=== PATIENT | female | born 1955 | race Caucasian/White ===

== ENCOUNTER → 2018-01-26 | Outpatient (REF) | payer OTHER, MEDICAID ==
[2018-01-26 19:14] LABS: BASO % 0.3 % (0.0-1.0); EOS # 0.1 10^3/uL (0.0-0.50); EOS % 1.1 % (0.0-3.0); HEMATOCRIT 43.4 % (36.0-47.0); HEMOGLOBIN 14.4 g/dl (12.0-15.5); IMMATURE GRANULOCYTE % 0.2 % (0-3.0); LYMPH # 1.8 10^3/uL (1.5-4.5); LYMPH % 20.7 % (24.0-44.0); MEAN CORPUSCULAR HEMOGLOBIN 33.9 pg (27.0-33.0); MEAN CORPUSCULAR HGB CONC 33.2 g/dl (32.0-36.5); MEAN CORPUSCULAR VOLUME 102.1 fl (80.0-96.0); MONO # 0.6 10^3/uL (0.0-0.8); MONO % 7.3 % (0.0-5.0); NEUTROPHILS # 6.2 10^3/uL (1.8-7.7); NEUTROPHILS % 70.4 % (36.0-66.0); PLATELET COUNT, AUTOMATED 393 10^3/uL (150-450); RED BLOOD COUNT 4.25 10^6/uL (4.00-5.40); RED CELL DISTRIBUTION WIDTH 12.4 % (11.5-14.5); WHITE BLOOD COUNT 8.8 10^3/uL (4.0-10.0)
[2018-01-26 19:23] LABS: ALBUMIN 4.1 GM/DL (3.2-5.2); ALBUMIN/GLOBULIN RATIO 1.37 (1.00-1.93); ALKALINE PHOSPHATASE 79 U/L (45-117); ALT/SGPT 23 U/L (12-78); ANION GAP 7 MEQ/L (8-16); AST/SGOT 22 U/L (7-37); BILIRUBIN,TOTAL 0.4 MG/DL (0.2-1.0); BLOOD UREA NITROGEN 11 MG/DL (7-18); CALCIUM LEVEL 9.7 MG/DL (8.8-10.2); CARBON DIOXIDE LEVEL 26 MEQ/L (21-32); CHLORIDE LEVEL 107 MEQ/L (98-107); CHOLESTEROL LEVEL 206 MG/DL (<200); CHOLESTEROL RISK RATIO 5.024 (<5); CREATININE FOR GFR 0.79 MG/DL (0.55-1.30); GLOMERULAR FILTRATION RATE > 60.0 (>45); GLUCOSE, FASTING 96 MG/DL (70-100); HDL CHOLESTEROL 41 MG/DL (>40); LDL CHOLESTEROL 137 MG/DL (<100); NON-HDL-C 165 MG/DL; POTASSIUM SERUM 4.3 MEQ/L (3.5-5.1); SODIUM LEVEL 140 MEQ/L (136-145); THYROID STIMULATING HORMONE 0.669 uIU/ML (0.358-3.740); TOTAL PROTEIN 7.1 GM/DL (6.4-8.2); TRIGLYCERIDES LEVEL 140 MG/DL (<150)
[2018-01-26 19:24] LABS: TOTAL 25(OH) VITAMIN D 34.8 NG/ML (30.0-100.0)
[2018-01-26 19:25] LABS: FOLATE 3.7 NG/ML (>5.4); VITAMIN B12 LEVEL 875 PG/ML (247-911)
[2018-01-26 20:31] LABS: ESTIMATED AVERAGE GLUCOSE 117 MG/DL (60-110); HEMOGLOBIN A1c 5.7 %
== END ==
LOC: M LAB REF 18:49
DX: Z13.9 Encounter for screening, unspecified (principal)

== ENCOUNTER 2018-02-11 18:20 | Inpatient (IN) | payer OTHER, MEDICAID ==
[2018-02-11] MEDS: NS 1,000 ML IV ×2 (18:51→20:30)
[2018-02-11 19:04] LABS: VENOUS BASE EXCESS 3.7 (-2.0-2.0); VENOUS HCO3 30.6 MEQ/L (23.0-27.0); VENOUS O2 SATURATION 50.5 % (60.0-80.0); VENOUS PARTIAL PRESSURE CO2 59.3 mmHg (38.0-50.0); VENOUS PARTIAL PRESSURE O2 30.5 mmHg (30.0-50.0); VENOUS PH 7.331 UNITS (7.330-7.430); VENOUS STANDARD HCO3 26.9 MEQ/L; VENOUS TOTAL CO2 32.5 MEQ/L (24.0-28.0)
[2018-02-11 19:05] LABS: BASO % 0.2 % (0.0-1.0); EOS # 0.1 10^3/uL (0.0-0.50); EOS % 0.6 % (0.0-3.0); HEMATOCRIT 27.7 % (36.0-47.0); HEMOGLOBIN 9.1 g/dl (12.0-15.5); IMMATURE GRANULOCYTE % 0.8 % (0-3.0); LYMPH # 2.5 10^3/uL (1.5-4.5); LYMPH % 15.1 % (24.0-44.0); MEAN CORPUSCULAR HEMOGLOBIN 33.7 pg (27.0-33.0); MEAN CORPUSCULAR HGB CONC 32.9 g/dl (32.0-36.5); MEAN CORPUSCULAR VOLUME 102.6 fl (80.0-96.0); MONO # 0.9 10^3/uL (0.0-0.8); MONO % 5.3 % (0.0-5.0); NEUTROPHILS # 12.9 10^3/uL (1.8-7.7); PLATELET COUNT, AUTOMATED 372 10^3/uL (150-450); RED CELL DISTRIBUTION WIDTH 12.8 % (11.5-14.5); WHITE BLOOD COUNT 16.6 10^3/uL (4.0-10.0)
[2018-02-11 19:17] LABS: INR 1.17; PROTHROMBIN TIME 15.1 SECONDS (12.1-14.4)
[2018-02-11 19:18] LABS: PARTIAL THROMBOPLASTIN TIME 26.1 SECONDS (25.4-37.6)
[2018-02-11] MEDS: AZITHROMYCIN 250 MG TAB PO (19:30)
[2018-02-11] MEDS: cefTRIAXone SOD 1 GM in D5W MINI-BAG PLUS 50 ML IV (19:30)
[2018-02-11 19:34] LABS: LACTIC ACID SEPSIS PROTOCOL 1.8 MMOL/L (0.4-2.0)
[2018-02-11 19:34] LABS: ALBUMIN 3.1 GM/DL (3.2-5.2); ALBUMIN/GLOBULIN RATIO 1.19 (1.00-1.93); ALKALINE PHOSPHATASE 58 U/L (45-117); ALT/SGPT 17 U/L (12-78); AMYLASE 51 U/L (25-115); ANION GAP 10 MEQ/L (8-16); AST/SGOT 14 U/L (7-37); BILIRUBIN,DIRECT < 0.1 MG/DL (0.0-0.2); BILIRUBIN,TOTAL 0.2 MG/DL (0.2-1.0); BLOOD UREA NITROGEN 69 MG/DL (7-18); C REACTIVE PROTEIN QUANTITATIV 1.65 MG/DL (0.00-0.30); CALCIUM LEVEL 9.3 MG/DL (8.8-10.2); CARBON DIOXIDE LEVEL 28 MEQ/L (21-32); CHLORIDE LEVEL 105 MEQ/L (98-107); CPK CREATINE PHOSPHOKINASE 84 U/L (26-192); CREATININE FOR GFR 1.56 MG/DL (0.55-1.30); GLOMERULAR FILTRATION RATE 35.7 (>45); GLUCOSE, FASTING 103 MG/DL (70-100); MB/CK RELATIVE INDEX 1.55 (< OR =4); POTASSIUM SERUM 3.8 MEQ/L (3.5-5.1); SODIUM LEVEL 143 MEQ/L (136-145); TOTAL PROTEIN 5.7 GM/DL (6.4-8.2); TROPONIN I < 0.02 NG/ML (< 0.10)
[2018-02-11 19:43] LABS: INFLUENZA A AMPLIFICATION NEGATIVE (NEGATIVE); INFLUENZA B AMPLIFICATION NEGATIVE (NEGATIVE)
[2018-02-11 22:13] LABS: RETIC HEMOGLOBIN EQUIVALENT 37.1 pg (24-36); RETICULOCYTE # 57.6 10^9/L (17-77); RETICULOCYTE % 2.2 % (0.5-1.5)
[2018-02-11 22:20] LABS: APPEARANCE, URINE CLEAR (CLEAR); BACTERIA, URINE AUTO NEGATIVE (NEGATIVE); BILIRUBIN, URINE AUTO NEGATIVE (NEGATIVE); BLOOD, URINE BLOOD NEGATIVE (NEGATIVE); COLOR, URINE STRAW (YELLOW); GLUCOSE, URINE (UA) AUTO NEGATIVE (NEGATIVE); KETONE, URINE AUTO NEGATIVE (NEGATIVE); LEUKOCYTE ESTERASE, URINE AUTO NEGATIVE (NEGATIVE); MUCUS, URINE SMALL (NEGATIVE); NITRITE, URINE AUTO NEGATIVE (NEGATIVE); PROTEIN, URINE AUTO NEGATIVE (NEGATIVE); RBC, URINE AUTO 0 /HPF (0-3); SPECIFIC GRAVITY URINE AUTO 1.016 (1.002-1.035); SQUAMOUS EPITHELIAL CELL UR AU 0 /HPF (0-6); UROBILINOGEN, URINE AUTO 0.2 mg/dL (0.0-2.0); WBC, URINE AUTO 1 /HPF (0-3)
[2018-02-11] MEDS: ONDANSETRON 4MG/2ML VIAL (J2405) IV (22:25)
[2018-02-11 22:31] LABS: FERRITIN 58 NG/ML (8-252); IRON (FE) 42 UG/DL (50-170); TOTAL IRON BINDING CAPACITY 301 UG/DL (250-450)
[2018-02-11 23:38] LABS: CPK CREATINE PHOSPHOKINASE 93 U/L (26-192); TROPONIN I < 0.02 NG/ML (< 0.10)
[2018-02-12] MEDS: CEFEPIME HCL 2 GM in D5W 50 ML IV ×3 (00:40→16:19)
[2018-02-12] MEDS: HEPARIN SOD (PORCINE) 5000 UNITS/ML VIAL SQ ×3 (00:42→20:16)
[2018-02-12] MEDS: traZODone 50 MG TAB PO ×2 (00:42→20:16)
[2018-02-12 00:43] LABS: HEMATOCRIT 27.3 % (36.0-47.0)
[2018-02-12] MEDS: PANTOPRAZOLE 40MG INJ (PROTONIX) (C9113) IV ×3 (00:45→20:16)
[2018-02-12] MEDS: IPRATROPIUM 0.5MG/ALBUTEROL 2.5MG INH SOL UD 3ML (DUONEB)(J7620) NEB ×4 (02:00→20:18)
[2018-02-12 05:35] LABS: HEMATOCRIT 23.1 % (36.0-47.0); HEMOGLOBIN 7.4 g/dl (12.0-15.5); MEAN CORPUSCULAR VOLUME 103.1 fl (80.0-96.0); PLATELET COUNT, AUTOMATED 309 10^3/uL (150-450); RED BLOOD COUNT 2.24 10^6/uL (4.00-5.40); RED CELL DISTRIBUTION WIDTH 12.8 % (11.5-14.5); WHITE BLOOD COUNT 12.6 10^3/uL (4.0-10.0)
[2018-02-12 05:57] LABS: ANION GAP 5 MEQ/L (8-16); BLOOD UREA NITROGEN 50 MG/DL (7-18); C REACTIVE PROTEIN QUANTITATIV 1.31 MG/DL (0.00-0.30); CALCIUM LEVEL 8.7 MG/DL (8.8-10.2); CARBON DIOXIDE LEVEL 29 MEQ/L (21-32); CHLORIDE LEVEL 110 MEQ/L (98-107); GLOMERULAR FILTRATION RATE 59.6 (>45); GLUCOSE, FASTING 103 MG/DL (70-100); MAGNESIUM LEVEL 1.9 MG/DL (1.8-2.4); POTASSIUM SERUM 4.1 MEQ/L (3.5-5.1); SODIUM LEVEL 144 MEQ/L (136-145)
[2018-02-12] MEDS: NS 1,000 ML IV ×3 (06:11→16:19)
[2018-02-12] MEDS ORDERED: LISINOPRIL 20 MG TAB PO (09:00)
[2018-02-12] MEDS: CitaloPRAM (CeleXA) 20 MG TAB PO (09:45)
[2018-02-12] MEDS: SENOKOT S TAB PO ×2 (09:47→20:16)
[2018-02-12 11:00] LABS: IMMEDIATE SPIN CROSSMATCH 1 1
[2018-02-12 15:02] LABS: HEMATOCRIT 24.1 % (36.0-47.0); HEMOGLOBIN 7.8 g/dl (12.0-15.5)
[2018-02-12 19:00] LABS: HEMATOCRIT 23.5 % (36.0-47.0); HEMOGLOBIN 7.6 g/dl (12.0-15.5)
[2018-02-12] MEDS: AZITHROMYCIN INJ 500 MG, VIAL MATE ADAPTER 1 EACH in D5W 250 ML IV (20:16)
[2018-02-12] MEDS: ONDANSETRON 4MG/2ML VIAL (J2405) IV (20:39)
[2018-02-12 23:38] LABS: IMMEDIATE SPIN CROSSMATCH 1 1
[2018-02-13] MEDS: CEFEPIME HCL 2 GM in D5W 50 ML IV ×3 (01:41→15:20)
[2018-02-13] MEDS: IPRATROPIUM 0.5MG/ALBUTEROL 2.5MG INH SOL UD 3ML (DUONEB)(J7620) NEB ×4 (02:00→21:04)
[2018-02-13 02:50] LABS: HEMATOCRIT 26.8 % (36.0-47.0); HEMOGLOBIN 8.6 g/dl (12.0-15.5)
[2018-02-13] MEDS ORDERED: SLF 3 ML SYR IV (03:15)
[2018-02-13] MEDS: SLF 3 ML SYR IV ×3 (05:09→20:57)
[2018-02-13 06:25] LABS: HEMATOCRIT 28.2 % (36.0-47.0); HEMOGLOBIN 9.2 g/dl (12.0-15.5); MEAN CORPUSCULAR HEMOGLOBIN 31.9 pg (27.0-33.0); MEAN CORPUSCULAR HGB CONC 32.6 g/dl (32.0-36.5); MEAN CORPUSCULAR VOLUME 97.9 fl (80.0-96.0); PLATELET COUNT, AUTOMATED 310 10^3/uL (150-450); RED BLOOD COUNT 2.88 10^6/uL (4.00-5.40); RED CELL DISTRIBUTION WIDTH 16.6 % (11.5-14.5)
[2018-02-13 06:40] LABS: ANION GAP 6 MEQ/L (8-16); BLOOD UREA NITROGEN 18 MG/DL (7-18); C REACTIVE PROTEIN QUANTITATIV 0.72 MG/DL (0.00-0.30); CALCIUM LEVEL 8.8 MG/DL (8.8-10.2); CARBON DIOXIDE LEVEL 27 MEQ/L (21-32); CHLORIDE LEVEL 109 MEQ/L (98-107); CREATININE FOR GFR 0.82 MG/DL (0.55-1.30); GLOMERULAR FILTRATION RATE > 60.0 (>45); GLUCOSE, FASTING 97 MG/DL (70-100); MAGNESIUM LEVEL 1.9 MG/DL (1.8-2.4); POTASSIUM SERUM 3.7 MEQ/L (3.5-5.1); SODIUM LEVEL 142 MEQ/L (136-145)
[2018-02-13] MEDS: HEPARIN SOD (PORCINE) 5000 UNITS/ML VIAL SQ (08:14)
[2018-02-13] MEDS: CitaloPRAM (CeleXA) 20 MG TAB PO (08:14)
[2018-02-13] MEDS: PANTOPRAZOLE 40MG INJ (PROTONIX) (C9113) IV ×2 (08:14→20:57)
[2018-02-13] MEDS: SENOKOT S TAB PO ×2 (08:14→20:57)
[2018-02-13] MEDS: guaiFENesin SYRUP 200 MG/10 ML UDC PO ×3 (09:59→20:57)
[2018-02-13 14:05] LABS: HEMATOCRIT 29.1 % (36.0-47.0); HEMOGLOBIN 9.6 g/dl (12.0-15.5)
[2018-02-13] MEDS: AZITHROMYCIN INJ 500 MG, VIAL MATE ADAPTER 1 EACH in D5W 250 ML IV (20:00)
[2018-02-13] MEDS: traZODone 50 MG TAB PO (20:57)
[2018-02-14] MEDS: guaiFENesin SYRUP 200 MG/10 ML UDC PO ×3 (00:41→20:24)
[2018-02-14] MEDS: IPRATROPIUM 0.5MG/ALBUTEROL 2.5MG INH SOL UD 3ML (DUONEB)(J7620) NEB ×4 (01:55→20:12)
[2018-02-14 05:22] LABS: HEMATOCRIT 27.1 % (36.0-47.0); MEAN CORPUSCULAR HEMOGLOBIN 32.7 pg (27.0-33.0); MEAN CORPUSCULAR HGB CONC 33.2 g/dl (32.0-36.5); MEAN CORPUSCULAR VOLUME 98.5 fl (80.0-96.0); PLATELET COUNT, AUTOMATED 332 10^3/uL (150-450); RED BLOOD COUNT 2.75 10^6/uL (4.00-5.40); WHITE BLOOD COUNT 10.7 10^3/uL (4.0-10.0)
[2018-02-14 05:36] LABS: ANION GAP 5 MEQ/L (8-16); BLOOD UREA NITROGEN 11 MG/DL (7-18); C REACTIVE PROTEIN QUANTITATIV 0.48 MG/DL (0.00-0.30); CALCIUM LEVEL 8.9 MG/DL (8.8-10.2); CARBON DIOXIDE LEVEL 28 MEQ/L (21-32); CHLORIDE LEVEL 108 MEQ/L (98-107); CREATININE FOR GFR 0.73 MG/DL (0.55-1.30); GLOMERULAR FILTRATION RATE > 60.0 (>45); GLUCOSE, FASTING 96 MG/DL (70-100); MAGNESIUM LEVEL 1.8 MG/DL (1.8-2.4); POTASSIUM SERUM 3.7 MEQ/L (3.5-5.1); SODIUM LEVEL 141 MEQ/L (136-145)
[2018-02-14] MEDS: SLF 3 ML SYR IV ×3 (05:48→20:25)
[2018-02-14] MEDS: PANTOPRAZOLE 40MG INJ (PROTONIX) (C9113) IV ×2 (09:37→20:25)
[2018-02-14] MEDS: CEFEPIME HCL 2 GM in D5W 50 ML IV ×2 (09:37)
[2018-02-14] MEDS: SENOKOT S TAB PO ×2 (09:37→20:24)
[2018-02-14] MEDS: CitaloPRAM (CeleXA) 20 MG TAB PO (09:37)
[2018-02-14 11:59] LABS: FOLATE 3.4 NG/ML (>5.4); VITAMIN B12 LEVEL 717 PG/ML (247-911)
[2018-02-14] MEDS: AZITHROMYCIN 250 MG TAB PO (16:34)
[2018-02-14] MEDS: traZODone 50 MG TAB PO (20:24)
[2018-02-14] MEDS: CEFDINIR 300 MG CAP (OMNICEF) PO (20:25)
[2018-02-15] MEDS: ACETAMINOPHEN TAB 650MG DOSE (2X325MG) PO ×2 (00:20→14:32)
[2018-02-15] MEDS: IPRATROPIUM 0.5MG/ALBUTEROL 2.5MG INH SOL UD 3ML (DUONEB)(J7620) NEB ×5 (01:10→23:18)
[2018-02-15] MEDS: SLF 3 ML SYR IV ×3 (06:00→20:13)
[2018-02-15 06:01] LABS: HEMATOCRIT 27.1 % (36.0-47.0); HEMOGLOBIN 8.8 g/dl (12.0-15.5); MEAN CORPUSCULAR HGB CONC 32.5 g/dl (32.0-36.5); MEAN CORPUSCULAR VOLUME 98.5 fl (80.0-96.0); PLATELET COUNT, AUTOMATED 346 10^3/uL (150-450); RED BLOOD COUNT 2.75 10^6/uL (4.00-5.40); RED CELL DISTRIBUTION WIDTH 15.2 % (11.5-14.5); WHITE BLOOD COUNT 9.2 10^3/uL (4.0-10.0)
[2018-02-15 06:22] LABS: ANION GAP 6 MEQ/L (8-16); BLOOD UREA NITROGEN 9 MG/DL (7-18); C REACTIVE PROTEIN QUANTITATIV 0.91 MG/DL (0.00-0.30); CALCIUM LEVEL 8.6 MG/DL (8.8-10.2); CARBON DIOXIDE LEVEL 29 MEQ/L (21-32); CHLORIDE LEVEL 108 MEQ/L (98-107); CREATININE FOR GFR 0.69 MG/DL (0.55-1.30); GLOMERULAR FILTRATION RATE > 60.0 (>45); GLUCOSE, FASTING 99 MG/DL (70-100); MAGNESIUM LEVEL 1.8 MG/DL (1.8-2.4); POTASSIUM SERUM 3.6 MEQ/L (3.5-5.1); SODIUM LEVEL 143 MEQ/L (136-145)
[2018-02-15] MEDS: SENOKOT S TAB PO ×2 (08:23→20:13)
[2018-02-15] MEDS: CEFDINIR 300 MG CAP (OMNICEF) PO ×2 (08:23→20:13)
[2018-02-15] MEDS: AZITHROMYCIN 250 MG TAB PO (08:23)
[2018-02-15] MEDS: CitaloPRAM (CeleXA) 20 MG TAB PO (08:23)
[2018-02-15] MEDS: PANTOPRAZOLE 40MG INJ (PROTONIX) (C9113) IV ×2 (08:23→20:13)
[2018-02-15 13:54] LABS: HEMATOCRIT 28.2 % (36.0-47.0); HEMOGLOBIN 9.3 g/dl (12.0-15.5)
[2018-02-15] MEDS: guaiFENesin SYRUP 200 MG/10 ML UDC PO ×2 (14:32→18:39)
[2018-02-15] MEDS: traZODone 50 MG TAB PO (20:13)
[2018-02-16] MEDS: IPRATROPIUM 0.5MG/ALBUTEROL 2.5MG INH SOL UD 3ML (DUONEB)(J7620) NEB ×5 (02:00→20:32)
[2018-02-16] MEDS: SLF 3 ML SYR IV ×3 (04:46→20:53)
[2018-02-16 05:39] LABS: HEMATOCRIT 27.4 % (36.0-47.0); HEMOGLOBIN 9.1 g/dl (12.0-15.5); MEAN CORPUSCULAR HEMOGLOBIN 32.3 pg (27.0-33.0); MEAN CORPUSCULAR HGB CONC 33.2 g/dl (32.0-36.5); MEAN CORPUSCULAR VOLUME 97.2 fl (80.0-96.0); PLATELET COUNT, AUTOMATED 425 10^3/uL (150-450); RED BLOOD COUNT 2.82 10^6/uL (4.00-5.40); WHITE BLOOD COUNT 11.5 10^3/uL (4.0-10.0)
[2018-02-16 06:07] LABS: ANION GAP 7 MEQ/L (8-16); BLOOD UREA NITROGEN 9 MG/DL (7-18); C REACTIVE PROTEIN QUANTITATIV 2.03 MG/DL (0.00-0.30); CALCIUM LEVEL 8.9 MG/DL (8.8-10.2); CARBON DIOXIDE LEVEL 28 MEQ/L (21-32); CHLORIDE LEVEL 108 MEQ/L (98-107); CREATININE FOR GFR 0.77 MG/DL (0.55-1.30); GLOMERULAR FILTRATION RATE > 60.0 (>45); GLUCOSE, FASTING 109 MG/DL (70-100); MAGNESIUM LEVEL 1.8 MG/DL (1.8-2.4); POTASSIUM SERUM 3.3 MEQ/L (3.5-5.1); SODIUM LEVEL 143 MEQ/L (136-145)
[2018-02-16] MEDS: AZITHROMYCIN 250 MG TAB PO (09:10)
[2018-02-16] MEDS: guaiFENesin SYRUP 200 MG/10 ML UDC PO ×2 (09:10→14:52)
[2018-02-16] MEDS: PANTOPRAZOLE 40MG INJ (PROTONIX) (C9113) IV ×2 (09:10→20:53)
[2018-02-16] MEDS: CEFDINIR 300 MG CAP (OMNICEF) PO ×2 (09:11→20:53)
[2018-02-16] MEDS: POTASSIUM CHLORIDE 10 MEQ SR TABLET PO (09:11)
[2018-02-16] MEDS: SENOKOT S TAB PO ×2 (09:11→20:53)
[2018-02-16] MEDS: CitaloPRAM (CeleXA) 20 MG TAB PO (09:11)
[2018-02-16] MEDS: ACETAMINOPHEN TAB 650MG DOSE (2X325MG) PO ×2 (09:14→23:47)
[2018-02-16] MEDS: traZODone 50 MG TAB PO (20:53)
[2018-02-17] MEDS: IPRATROPIUM 0.5MG/ALBUTEROL 2.5MG INH SOL UD 3ML (DUONEB)(J7620) NEB ×2 (01:03→07:39)
[2018-02-17] MEDS: SLF 3 ML SYR IV ×2 (06:00→13:05)
[2018-02-17 07:39] LABS: HEMATOCRIT 28.9 % (36.0-47.0); HEMOGLOBIN 9.6 g/dl (12.0-15.5); MEAN CORPUSCULAR HEMOGLOBIN 32.9 pg (27.0-33.0); MEAN CORPUSCULAR HGB CONC 33.2 g/dl (32.0-36.5); PLATELET COUNT, AUTOMATED 437 10^3/uL (150-450); RED BLOOD COUNT 2.92 10^6/uL (4.00-5.40); RED CELL DISTRIBUTION WIDTH 15.2 % (11.5-14.5); WHITE BLOOD COUNT 10.6 10^3/uL (4.0-10.0)
[2018-02-17 08:02] LABS: ANION GAP 8 MEQ/L (8-16); BLOOD UREA NITROGEN 10 MG/DL (7-18); C REACTIVE PROTEIN QUANTITATIV 2.87 MG/DL (0.00-0.30); CALCIUM LEVEL 8.5 MG/DL (8.8-10.2); CARBON DIOXIDE LEVEL 27 MEQ/L (21-32); CHLORIDE LEVEL 109 MEQ/L (98-107); CREATININE FOR GFR 0.64 MG/DL (0.55-1.30); GLOMERULAR FILTRATION RATE > 60.0 (>45); GLUCOSE, FASTING 83 MG/DL (70-100); MAGNESIUM LEVEL 1.8 MG/DL (1.8-2.4); POTASSIUM SERUM 3.8 MEQ/L (3.5-5.1); SODIUM LEVEL 144 MEQ/L (136-145)
[2018-02-17] MEDS: AZITHROMYCIN 250 MG TAB PO (08:50)
[2018-02-17] MEDS: SENOKOT S TAB PO (08:50)
[2018-02-17] MEDS: CEFDINIR 300 MG CAP (OMNICEF) PO (08:50)
[2018-02-17] MEDS: PANTOPRAZOLE 40MG INJ (PROTONIX) (C9113) IV (08:50)
[2018-02-17] MEDS: CitaloPRAM (CeleXA) 20 MG TAB PO (08:50)
[2018-02-17] MEDS: ONDANSETRON 4MG/2ML VIAL (J2405) IV (09:24)
== END 2018-02-17 13:26 | disposition home or self-care (01) | DRG 723 ==
LOC: M ED 18:20 → M ED INP 20:21 → M PCU 23:51
PROC: 30233N1 Transfusion of Nonautologous Red Blood Cells into Peripheral Vein, Percutaneous Approach (ICD-10-PCS; principal; 2018-02-12)
DX: B34.8 Other viral infections of unspecified site (principal); N17.9 Acute kidney failure, unspecified; I10 Essential (primary) hypertension; F17.210 Nicotine dependence, cigarettes, uncomplicated; F32.9 Major depressive disorder, single episode, unspecified; G47.00 Insomnia, unspecified; D64.9 Anemia, unspecified; J45.909 Unspecified asthma, uncomplicated; R11.2 Nausea with vomiting, unspecified; R19.7 Diarrhea, unspecified; R42 Dizziness and giddiness; E86.0 Dehydration; J06.9 Acute upper respiratory infection, unspecified; Z79.899 Other long term (current) drug therapy; Z90.49 Acquired absence of other specified parts of digestive tract; Z96.641 Presence of right artificial hip joint

== ENCOUNTER → 2018-04-07 | Outpatient (REF) | payer OTHER ==
[~2018-04-07] MED LIST: AZIT-12 PO; CEFD300CAP PO; CITA40TA4 PO; FLON1SPR; LISI20TA PO; MUCI600T31 PO; PROAAER10 INH; TRAZ-163 PO; TRAZ150T90 PO; TYLE325C PO
[2018-04-07 18:20] LABS: BASO % 0.3 % (0.0-1.0); EOS # 0.1 10^3/uL (0.0-0.50); EOS % 1.6 % (0.0-3.0); HEMATOCRIT 38.3 % (36.0-47.0); HEMOGLOBIN 12.4 g/dl (12.0-15.5); LYMPH # 1.9 10^3/uL (1.5-4.5); LYMPH % 21.4 % (24.0-44.0); MEAN CORPUSCULAR HEMOGLOBIN 31.9 pg (27.0-33.0); MEAN CORPUSCULAR HGB CONC 32.4 g/dl (32.0-36.5); MEAN CORPUSCULAR VOLUME 98.5 fl (80.0-96.0); MONO # 0.8 10^3/uL (0.0-0.8); MONO % 9.1 % (0.0-5.0); NEUTROPHILS % 67.4 % (36.0-66.0); PLATELET COUNT, AUTOMATED 444 10^3/uL (150-450); RED BLOOD COUNT 3.89 10^6/uL (4.00-5.40); WHITE BLOOD COUNT 8.9 10^3/uL (4.0-10.0)
[2018-04-07 18:22] LABS: ALBUMIN 3.9 GM/DL (3.2-5.2); ALT/SGPT 19 U/L (12-78); BILIRUBIN,TOTAL 0.3 MG/DL (0.2-1.0); BLOOD UREA NITROGEN 12 MG/DL (7-18); CALCIUM LEVEL 9.8 MG/DL (8.8-10.2); CARBON DIOXIDE LEVEL 26 MEQ/L (21-32); CHLORIDE LEVEL 106 MEQ/L (98-107); CREATININE FOR GFR 0.76 MG/DL (0.55-1.30); GLOMERULAR FILTRATION RATE > 60.0 (>45); GLUCOSE, FASTING 76 MG/DL (70-100); POTASSIUM SERUM 4.2 MEQ/L (3.5-5.1); SODIUM LEVEL 138 MEQ/L (136-145); TOTAL PROTEIN 7.1 GM/DL (6.4-8.2)
== END ==
LOC: M LAB REF 16:30
PROVIDERS: ATTEND Nurse Practitioner Family
DX: D64.9 Anemia, unspecified (principal)

== ENCOUNTER 2018-04-20 07:56 | Day surgery (SDC) | payer OTHER ==
[~2018-04-20] VITALS: Ht 172.7 cm; Wt 92.1 kg
[~2018-04-20 07:56] MED LIST changes: +NS 1,000 ML IV ONE
[2018-04-20] MEDS ORDERED: PROPOFOL 200 MG/20 ML VIAL As Ordered ONE ×2 (09:32→10:02)
[2018-04-20] MEDS ORDERED: LIDOCAINE 2% INJ 100 MG/5 ML SDV (FOR ANES.) As Ordered ONE ×2 (09:32→10:02)
--- NOTE | 2018-04-20 10:00 | ROOR ---
Patient Name: Marsha Dixon Procedure Date: 04/20/2018 9:32 AM Date of : 1955 Age: 63 Room: [facility] Gender: Female Note Status: Finalized Procedure: Upper GI endoscopy Indications: Iron deficiency anemia Providers: DO Kimberly Real MD: Africa DURAN NP Requesting Provider: Medicines: Propofol per Anesthesia Complications: No immediate complications. Procedure: Pre-Anesthesia Assessment: - Prior to the procedure, a History and Physical was performed, and patient medications and allergies were reviewed. The patient is competent. The risks and benefits of the procedure and the sedation options and risks were discussed with the patient. All questions were answered and informed consent was obtained. Patient identification and proposed procedure were verified by the physician, the nurse, the anesthesiologist and the medtronics technician in the endoscopy suite. Mental Status Examination: alert and oriented. Airway Examination: normal oropharyngeal airway and neck mobility. Respiratory Examination: clear to auscultation. CV Examination: normal. Prophylactic Antibiotics: The patient does not require prophylactic antibiotics. Prior Anticoagulants: The patient has taken no previous anticoagulant or antiplatelet agents. ASA Grade Assessment: II - A patient with mild systemic disease. After reviewing the risks and benefits, the patient was deemed in satisfactory condition to undergo the procedure. The anesthesia plan was to use monitored anesthesia care (MAC). Immediately prior to administration of medications, the patient was re-assessed for adequacy to receive sedatives. The heart rate, respiratory rate, oxygen saturations, blood pressure, adequacy of pulmonary ventilation, and response to care were monitored throughout the procedure. The physical status of the patient was re-assessed after the procedure. The Endoscope was introduced through the mouth, and advanced to the second part of duodenum. The upper GI endoscopy was accomplished without difficulty. The patient tolerated the procedure well. Findings: The exam was otherwise without abnormality. Impression: - The examination was otherwise normal. - No specimens collected. Recommendation: - Patient has a contact number available for emergencies. The signs and symptoms of potential delayed complications were discussed with the patient. Return to normal activities tomorrow. Written discharge instructions were provided to the patient. - Return to my office PRN. William Griffin DO 04/20/2018 10:00:32 AM This report has been signed electronically. Number of Addenda: 0 Note Initiated On: 04/20/2018 9:32 AM Estimated Blood Loss: Estimated blood loss: none.
--- NOTE | 2018-04-20 10:03 | ROOR ---
Patient Name: Marsha Dixon Procedure Date: 04/20/2018 9:35 AM Date of : 1955 Age: 63 Room: [facility] Gender: Female Note Status: Finalized Procedure: Colonoscopy Indications: Iron deficiency anemia Providers: DO Kimberly Real MD: Africa DURAN NP Requesting Provider: Medicines: Propofol per Anesthesia Complications: No immediate complications. Procedure: Pre-Anesthesia Assessment: - Prior to the procedure, a History and Physical was performed, and patient medications and allergies were reviewed. The patient is competent. The risks and benefits of the procedure and the sedation options and risks were discussed with the patient. All questions were answered and informed consent was obtained. Patient identification and proposed procedure were verified by the physician, the nurse, the anesthesiologist and the fiscal technician in the endoscopy suite. Mental Status Examination: alert and oriented. Airway Examination: normal oropharyngeal airway and neck mobility. Respiratory Examination: clear to auscultation. CV Examination: normal. Prophylactic Antibiotics: The patient does not require prophylactic antibiotics. Prior Anticoagulants: The patient has taken no previous anticoagulant or antiplatelet agents. ASA Grade Assessment: II - A patient with mild systemic disease. After reviewing the risks and benefits, the patient was deemed in satisfactory condition to undergo the procedure. The anesthesia plan was to use monitored anesthesia care (MAC). Immediately prior to administration of medications, the patient was re-assessed for adequacy to receive sedatives. The heart rate, respiratory rate, oxygen saturations, blood pressure, adequacy of pulmonary ventilation, and response to care were monitored throughout the procedure. The physical status of the patient was re-assessed after the procedure. The Colonoscope was introduced through the anus and advanced to the cecum, identified by appendiceal orifice and ileocecal valve. The colonoscopy was performed without difficulty. The patient tolerated the procedure well. Findings: The perianal exam findings include non-thrombosed internal hemorrhoids and internal hemorrhoids (Grade I). A few small-mouthed diverticula were found in the sigmoid colon. The exam was otherwise without abnormality on direct and retroflexion views. Impression: - Non-thrombosed internal hemorrhoids and internal hemorrhoids (Grade I) found on perianal exam. - Diverticulosis in the sigmoid colon. - The examination was otherwise normal on direct and retroflexion views. - No specimens collected. Recommendation: - Patient has a contact number available for emergencies. The signs and symptoms of potential delayed complications were discussed with the patient. Return to normal activities tomorrow. Written discharge instructions were provided to the patient. - Repeat colonoscopy in 5-10 years for screening purposes. - Return to my office PRN. William Griffin DO 04/20/2018 10:02:41 AM This report has been signed electronically. Number of Addenda: 0 Note Initiated On: 04/20/2018 9:35 AM Estimated Blood Loss: Estimated blood loss: none.
[2018-04-20 10:25] VITALS: BP 127/64
== END 2018-04-20 10:42 | disposition home or self-care (01) ==
LOC: M OPP 07:56
PROVIDERS: ATTEND Surgery
DX: D50.9 Iron deficiency anemia, unspecified (principal); K64.0 First degree hemorrhoids; K57.30 Diverticulosis of large intestine without perforation or abscess without bleeding; I10 Essential (primary) hypertension; F17.210 Nicotine dependence, cigarettes, uncomplicated; Z79.899 Other long term (current) drug therapy; Z90.49 Acquired absence of other specified parts of digestive tract

== ENCOUNTER → 2018-07-28 | Outpatient (REF) | payer OTHER, MEDICAID ==
[~2018-07-28] MED LIST changes: -NS 1,000 ML IV ONE
[2018-07-28 17:12] LABS: BASO # 0.1 10^3/uL (0.0-0.2); BASO % 0.7 % (0.0-1.0); EOS # 0.4 10^3/uL (0.0-0.50); EOS % 4.5 % (0.0-3.0); HEMATOCRIT 40.5 % (36.0-47.0); LYMPH % 24.8 % (24.0-44.0); MEAN CORPUSCULAR HEMOGLOBIN 32.5 pg (27.0-33.0); MEAN CORPUSCULAR HGB CONC 32.1 g/dl (32.0-36.5); MEAN CORPUSCULAR VOLUME 101.3 fl (80.0-96.0); MONO # 0.8 10^3/uL (0.0-0.8); MONO % 9.7 % (0.0-5.0); NEUTROPHILS # 4.9 10^3/uL (1.8-7.7); NEUTROPHILS % 59.9 % (36.0-66.0); PLATELET COUNT, AUTOMATED 409 10^3/uL (150-450); WHITE BLOOD COUNT 8.2 10^3/uL (4.0-10.0)
[2018-07-28 17:23] LABS: ALBUMIN 3.9 GM/DL (3.2-5.2); ALT/SGPT 23 U/L (12-78); BILIRUBIN,TOTAL 0.3 MG/DL (0.2-1.0); BLOOD UREA NITROGEN 20 MG/DL (7-18); CALCIUM LEVEL 9.4 MG/DL (8.8-10.2); CARBON DIOXIDE LEVEL 26 MEQ/L (21-32); CHLORIDE LEVEL 106 MEQ/L (98-107); CHOLESTEROL LEVEL 216 MG/DL (<200); CHOLESTEROL RISK RATIO 5.142 (<5); CREATININE FOR GFR 0.95 MG/DL (0.55-1.30); FREE T4 1.06 NG/DL (0.76-1.46); GLOMERULAR FILTRATION RATE > 60.0 (>45); GLUCOSE, FASTING 118 MG/DL (70-100); HDL CHOLESTEROL 42 MG/DL (>40); LDL CHOLESTEROL 149 MG/DL (<100); NON-HDL-C 174 MG/DL; POTASSIUM SERUM 4.4 MEQ/L (3.5-5.1); SODIUM LEVEL 137 MEQ/L (136-145); THYROID STIMULATING HORMONE 0.653 uIU/ML (0.358-3.740); TOTAL PROTEIN 6.8 GM/DL (6.4-8.2); TRIGLYCERIDES LEVEL 124 MG/DL (<150)
[2018-07-28 17:58] LABS: TOTAL T3 102.3 NG/DL (60.0-181.0)
[2018-07-28 19:16] LABS: HEMOGLOBIN A1c 6.1 %
== END ==
LOC: M LAB REF 16:48
PROVIDERS: ATTEND Nurse Practitioner Family
DX: Z13.9 Encounter for screening, unspecified (principal); I10 Essential (primary) hypertension

== ENCOUNTER → 2018-12-20 | Outpatient (CLI) | payer OTHER ==
[~2018-12-20] MED LIST changes: -LISI20TA PO; +LISI20TA19 PO
--- NOTE | 2018-12-20 11:01 | REPMRS ---
Patient History Patient is postmenopausal and had first child at age 35. Family history of breast cancer at age 89 in mother, breast cancer at age 54 in sister, unknown cancer at age 78 in father. Priors no longer available-10 years ago 3D TOMOSYNTHESIS WAS PERFORMED. [facility] lifetime risk for breast cancer is 15.2%. Digital Mammo Screening Bilat: December 20, 2018 - Exam #: [id number] Bilateral CC and MLO view(s) were taken. Technologist: Marcela Ramey, Technologist No prior studies available for comparison. FINDINGS: There are scattered fibroglandular densities. There is no evidence of cancer on this mammogram. Assessment: BI-RADS/ACR category 2 mammogram. Benign Findings. Recommendation Routine screening mammogram of both breasts in 1 year (for women over age 40). This mammogram was interpreted with the aid of an FDA-approved computer-aided dectection system. Electronically Signed By: William English MD 12/20/18 [id number]
== END ==
LOC: M RAD 10:03
PROVIDERS: ATTEND Nurse Practitioner Family
DX: Z12.31 Encounter for screening mammogram for malignant neoplasm of breast (principal); Z80.3 Family history of malignant neoplasm of breast

== ENCOUNTER → 2018-12-26 | Outpatient (REF) | payer OTHER ==
[2018-12-26 16:40] LABS: ALBUMIN 3.5 GM/DL (3.2-5.2); BILIRUBIN,TOTAL 0.4 MG/DL (0.2-1.0); CALCIUM LEVEL 9.8 MG/DL (8.8-10.2); CHOLESTEROL RISK RATIO 4.63 (<5); CREATININE FOR GFR 1.14 MG/DL (0.55-1.30); GLOMERULAR FILTRATION RATE 51.2 (>45); TOTAL PROTEIN 6.7 GM/DL (6.4-8.2)
[2018-12-26 16:50] LABS: HEMOGLOBIN A1c 6.1 %
== END ==
LOC: M LAB REF 16:05
PROVIDERS: ATTEND Nurse Practitioner Family
DX: E78.5 Hyperlipidemia, unspecified (principal); R73.03 Prediabetes

== ENCOUNTER → 2018-12-27 | Outpatient (CLI) | payer OTHER ==
--- NOTE | 2018-12-27 15:43 | REP ---
Two-view chest: 12/27/2018. Indication: Dyspnea. Comparison: 02/11/2019. Findings: The lungs are clear. There is no significant pleural fluid or pneumothorax. The cardiac silhouette is at the upper limits of normal. Lungs are mildly hyperinflated. Spondylitic changes of the thoracic spine are noted without compression deformity. Impression: No acute cardiopulmonary process. Electronically Signed by Tyler Coronel DO 12/27/2018 03:35 P
== END ==
LOC: M RAD 13:12
PROVIDERS: ATTEND Physician Assistant Medical
DX: R05 Cough (principal); R06.02 Shortness of breath

== ENCOUNTER → 2019-08-14 | Outpatient (REF) | payer OTHER ==
[~2019-08-14] MED LIST changes: -TRAZ-163 PO; +TRAZ-257 PO
[2019-08-14 11:59] LABS: BASO # 0.1 10^3/uL (0.0-0.2); BASO % 0.6 % (0.0-1.0); EOS # 0.3 10^3/uL (0.0-0.5); EOS % 3.4 % (0.0-3.0); HEMOGLOBIN 13.8 g/dl (12.0-15.5); LYMPH # 2.6 10^3/uL (1.5-5.0); LYMPH % 30.8 % (24.0-44.0); MEAN CORPUSCULAR HEMOGLOBIN 33.6 pg (27.0-33.0); MEAN CORPUSCULAR HGB CONC 32.9 g/dl (32.0-36.5); MEAN CORPUSCULAR VOLUME 102.2 fl (80.0-96.0); MONO # 0.7 10^3/uL (0.0-0.8); NEUTROPHILS # 4.9 10^3/uL (1.5-8.5); NEUTROPHILS % 56.9 % (36.0-66.0); PLATELET COUNT, AUTOMATED 397 10^3/uL (150-450); RED BLOOD COUNT 4.11 10^6/uL (4.00-5.40); WHITE BLOOD COUNT 8.6 10^3/uL (4.0-10.0)
[2019-08-14 12:53] LABS: ALBUMIN 3.7 GM/DL (3.2-5.2); BILIRUBIN,TOTAL 0.5 MG/DL (0.2-1.0); CALCIUM LEVEL 9.6 MG/DL (8.8-10.2); CHOLESTEROL RISK RATIO 5.743 (<5); CREATININE FOR GFR 1.13 MG/DL (0.55-1.30); GLOMERULAR FILTRATION RATE 51.6 (>45); POTASSIUM SERUM 4.3 MEQ/L (3.5-5.1)
[2019-08-14 14:18] LABS: HEMOGLOBIN A1c 6.1 %
== END ==
LOC: M LAB REF 11:33
PROVIDERS: ATTEND Nurse Practitioner Family
DX: I10 Essential (primary) hypertension (principal); E78.5 Hyperlipidemia, unspecified; R73.03 Prediabetes

== ENCOUNTER 2019-11-02 05:40 | Inpatient (IN) | payer OTHER ==
[~2019-11-02] VITALS: Ht 167.6 cm; Wt 92.0 kg
[~2019-11-02 05:40] MED LIST changes: -LISI20TA19 PO; +LISI20TA35 PO
[2019-11-02] MEDS ORDERED: ONDANSETRON 4MG/2ML VIAL As Ordered ONE (05:54)
[2019-11-02] MEDS ORDERED: PROAAER10 INH (06:09)
[2019-11-02] MEDS ORDERED: SYMB16INH INH (06:09)
[2019-11-02] MEDS ORDERED: ONDANSETRON 4MG/2ML VIAL IV ONE (06:15)
[2019-11-02] MEDS ORDERED: KETOROLAC 30 MG/ML 1ML VIAL IV ONE (06:30)
[2019-11-02] MEDS ORDERED: NS 1,000 ML IV ONE (06:30)
[2019-11-02] MEDS ORDERED: ISOVUE-370 76% 100ML VIAL As Ordered ONE (06:31)
[2019-11-02 06:49] LABS: BASO % 0.3 % (0.0-1.0); EOS % 0.3 % (0.0-3.0); HEMATOCRIT 44.4 % (36.0-47.0); HEMOGLOBIN 14.9 g/dl (12.0-15.5); LYMPH % 6.6 % (24.0-44.0); MEAN CORPUSCULAR HEMOGLOBIN 34.2 pg (27.0-33.0); MEAN CORPUSCULAR HGB CONC 33.6 g/dl (32.0-36.5); MEAN CORPUSCULAR VOLUME 101.8 fl (80.0-96.0); MONO # 0.5 10^3/uL (0.0-0.8); MONO % 3.3 % (0.0-5.0); NEUTROPHILS % 89.2 % (36.0-66.0); PLATELET COUNT, AUTOMATED 471 10^3/uL (150-450); RED BLOOD COUNT 4.36 10^6/uL (4.00-5.40); WHITE BLOOD COUNT 15.7 10^3/uL (4.0-10.0)
[2019-11-02 06:59] LABS: ALBUMIN 4.3 GM/DL (3.2-5.2); BILIRUBIN,DIRECT 0.2 MG/DL (0.0-0.2); BILIRUBIN,TOTAL 0.6 MG/DL (0.2-1.0); CALCIUM LEVEL 10.1 MG/DL (8.8-10.2); CREATININE FOR GFR 1.03 MG/DL (0.55-1.30); GLOMERULAR FILTRATION RATE 57.4 (>45); POTASSIUM SERUM 4.8 MEQ/L (3.5-5.1); TOTAL PROTEIN 7.9 GM/DL (6.4-8.2)
--- NOTE | 2019-11-02 07:45 | REPVR ---
PROCEDURE INFORMATION: Exam: CT Abdomen And Pelvis With Contrast Exam date and time: 11/02/2019 6:19 AM Age: 64 years old Clinical indication: Abdominal pain; Localized; Right lower quadrant (rlq); Additional info: Rlq pain, severe n/v/d TECHNIQUE: Imaging protocol: Computed tomography of the abdomen and pelvis with intravenous contrast. Radiation optimization: All CT scans at this facility use at least one of these dose optimization techniques: automated exposure control; mA and/or kV adjustment per patient size (includes targeted exams where dose is matched to clinical indication); or iterative reconstruction. Contrast material: ISO; Contrast volume: 100 ml; Contrast route: INTRAVENOUS (IV); COMPARISON: CT ABD PELVIS W/O CONTRAST 02/11/2018 10:41 PM FINDINGS: Lungs: Atelectasis in the lingula and right middle lobe. Liver: Hepatomegaly. Gallbladder and bile ducts: Normal. No calcified stones. No ductal dilation. Pancreas: Normal. No ductal dilation. Spleen: Normal. No splenomegaly. Adrenals: Stable right adrenal nodule previously shown be an adenoma. Stable left adrenal hyperplasia. Kidneys and ureters: Mild bilateral renal cortical scarring. Stomach and bowel: Small bowel obstruction with transition point in the ventral abdominal hernia best appreciated on axial image number 126. Diverticulosis of colon. No evidence of acute diverticulitis. Appendix: No evidence of appendicitis. Intraperitoneal space: Trace ascites. Vasculature: Atherosclerotic disease of the abdominal aorta. Lymph nodes: Maldonado hepatis and foramen Dave adenopathy. Bladder: Unremarkable as visualized. Reproductive: Stable heterogeneous soft tissue fullness inseparable from the uterus and left adnexa. Bones/joints: Multilevel degenerative disease and facet hypertrophy of the lumbar spine. Stenosis of the spinal canal and neural foramina at multiple levels. Soft tissues: Unremarkable. IMPRESSION: Small bowel obstruction with transition point in the ventral abdominal hernia best appreciated on axial image number 126. Electronically signed by: Ham Lai On 11/02/2019 07:45:38 AM
[2019-11-02] MEDS ORDERED: MORPHINE 4 MG/ML 1ML VIAL/SYRINGE (J2270) IV ONE (08:00)
[2019-11-02] MEDS ORDERED: LISI10TA15 PO (09:22)
[2019-11-02] MEDS ORDERED: ACET1TAB55 PO (09:22)
[2019-11-02] MEDS ORDERED: NICO1DIS11 TD (09:25)
[2019-11-02] MEDS ORDERED: MORPHINE 2 MG/ML 1ML VIAL (J2270) IV ONE (09:30)
[2019-11-02] MEDS ORDERED: ALBUTEROL 90 MCG/ACT 8GM HFA INHALER INH PRN (11:45)
--- NOTE | 2019-11-02 12:42 | HPEPDOC ---
[facility] Medical History & Physical Date of Admission Nov 02, 2019 Date of Service: Nov 02, 2019 Attending Physician: JAZMIN THOMPSON MD History and Physical CHIEF COMPLAINT: severe lower abdominal pain HISTORY OF PRESENT ILLNESS: 64 yo F with a hx of HTN, anxiety, depression, COPD, complicated diverticulitis with colectomy, colostomy (reversed), L inguinal hernia repair (open) and R hip arthroplasty. progressively worsening lower abdominal pain starting at 7pm yesterday evening, associated with nausea and bilious non bloody vomiting. Patient further endorses subjective fevers, chills, malaise and lack of appetite. She denies blood per rectum. On arrival to ED, CT abdomen showing SBO. NGT placed to LIS, draining large amount of gastric contents. Marked improvement in pain, nausea. General Sx consulted, Dr. Jung. Trial conservative management for SBO, likely 2/2 adhesions. LA wnl. WBC wnl. PAST MEDICAL HISTORY: 1. HTN 2. Anxiety and depression 3. COPD 4. Diverticulitis PAST SURGICAL HISTORY: 1. Complicated diverticulitis, colectomy, colostomy with reversal 2. L inguinal hernia repair (open) 3. R hip arthroplasty SOCIAL HISTORY: Smoker, 20 pack year hx Rare etoh use Denies illicit drug use FAMILY HISTORY: non contributory ALLERGIES: NKDA REVIEW OF SYSTEMS: CONSTITUTIONAL: malaise HEENT: none. CARDIOVASCULAR: none. RESPIRATORY: none. GASTROINTESTINAL: 3/10 abdo pain (8/10 on arrival), nausea, vomiting. GENITOURINARY: none SKIN: none MUSCULOSKELETAL: none. NEUROLOGICAL: none. PSYCHIATRIC: none. ENDOCRINE: none. HEMATOLOGIC/LYMPHATIC: none. HOME MEDICATIONS: Please see below. PHYSICAL EXAMINATION: VITAL SIGNS: see below GENERAL APPEARANCE: malaise, discomfort. HEENT: PERRLA CARDIOVASCULAR: RRR, NORMAL S1,S2. LUNGS: CTAB. ABDOMEN: MILDLY DISTENDED, BS HYPERACTIVE, NGT DRAINING MUSCULOSKELETAL: no deformity, normal ROM . EXTREMITIES: no edema, normal ROM . NEUROLOGICAL: no focal neuro deficits. PSYCHIATRIC: calm, cooperative. LABORATORY DATA: See below. IMAGING: CT abo pelvis wo contrast - small bowel obstruction, with transition point in the ventral abdominal hernia MICROBIOLOGY: Please see below. ASSESSMENT: 64 yo F with a hx of HTN, anxiety, depression, COPD, complicated diverticulitis with colectomy, colostomy (reversed), L inguinal hernia repair (open) and R hip arthroplasty. Admitted for SBO likely 2/2 abdominal adhesions. Trial conservative therapy. Surgery on consult, Dr. Jung. . PLAN: 1. SBO: 2/2 abdominal adhesions. Gen Sx on consult. Discussed with Dr. Jung, does not believe ventral hernia to be culprit for SBO, likely adhesions. NGT. NPO. Pain control morphine 2 mg q6h prn IV. Zofran IV prn. IVF D5NS 125 cc/hr. Daily abdo plain filmd. 2. HTN: home meds when tolerating PO. Lisinopril-HCTZ 10-12.5. elevated bp on admision likely 2/2 pain. monitor. IV prn if needed depenign on floor paramaters. 3. Anxiety and depression. home med when PO. Citalopram 40 mg daily. 4. COPD: albuterol. symbicort. 5. Macrocytosis: check b12, folate 6. pre-DM: A1c 6.0. Fasting BG 164, possibly due to stress reaction. PCP follow up. . DVT PPX: lovenox 40 mg sc daily. Dispo: home once medically clear. Vital Signs Vital Signs Date Time Temp Pulse Resp B/P (MAP) Pulse Ox O2 Delivery O2 Flow Rate FiO2 11/02/19 10:08 20 150/70 91 Room Air 11/02/19 07:49 95 11/02/19 05:44 98.7 Laboratory Data Labs 24H Laboratory Tests 2 11/02/19 05:40: Estimated Mean Plasma Glucose 126H, Hemoglobin A1c 6.0 11/02/19 05:57: Immature Granulocyte % (Auto) 0.3, Neutrophils (%) (Auto) 89.2H, Lymphocytes (%) (Auto) 6.6L, Monocytes (%) (Auto) 3.3, Eosinophils (%) (Auto) 0.3, Basophils (%) (Auto) 0.3, Neutrophils # (Auto) 14.0H, Lymphocytes # (Auto) 1.0L, Monocytes # (Auto) 0.5, Eosinophils # (Auto) 0.0, Basophils # (Auto) 0.0, Nucleated Red Blood Cells % (auto) 0.0, Anion Gap 4L, Glomerular Filtration Rate 57.4, Calcium Level 10.1, Total Bilirubin 0.6, Direct Bilirubin 0.2, Aspartate Amino Transf (AST/SGOT) 37, Alanine Aminotransferase (ALT/SGPT) 39, Alkaline Phosphatase 105, Total Protein 7.9, Albumin 4.3, Albumin/Globulin Ratio 1.2, Lipase 144 11/02/19 06:36: Lactic Acid Level 1.5 CBC/BMP Laboratory Tests 11/02/19 05:57 Home Medications Scheduled Budesonide/Formoterol (Symbicort 160-4.5 Mcg Inhaler) 6 Gm Hfa.aer.ad, 1 PUFF INH QHS Citalopram Hydrobromide (Citalopram HBr) 40 Mg Tab, 40 MG PO DAILY Fluticasone Propionate (Flonase Allergy Relief) 50 Mcg/Act Spr, 2 SPRAYS NA DAILY Lisinopril/Hydrochlorothiazide (Lisinopril-Hctz 10-12.5 mg Tab) 1 Each Tablet, 1 TAB PO DAILY Trazodone HCl (Trazodone HCl) 100 Mg Tab, 200 MG PO QHS Scheduled PRN Albuterol Sulfate (Proair Hfa) 8.5 Gm Hfa.aer.ad, 2 PUFF INH for SHORTNESS OF BREATH Guaifenesin (Mucinex) 600 Mg Tab, 600 MG PO BID PRN for CONGESTION Nicotine (Nicotine Patch) 21 Mg/24 Hr Patch.td24, 21 MG TD DAILY PRN for NICOTINE WITHDRAWAL Allergies Coded Allergies: No Known Allergies (Unverified , 03/25/18) A-FIB/CHADSVASC A-FIB History Current/History of A-Fib/PAF?: No Current PO Anticoag Therapy: No JAZMIN THOMPSON MD Nov 02, 2019 12:42
[2019-11-02] MEDS ORDERED: NICOTINE 7 MG/24 HR TRANSDERMAL TD ONE (13:00)
[2019-11-02] MEDS: ONDANSETRON 4MG/2ML VIAL IV PRN ×2 (16:06→22:14)
[2019-11-02] MEDS: MORPHINE 2 MG/ML 1ML VIAL (J2270) IV PRN ×2 (16:07→22:15)
[2019-11-02] MEDS: D5W/0.9% SODIUM CHLORIDE 1,000 ML IV SCH ×2 (16:08→23:30)
[2019-11-02] MEDS: SYMBICORT 160/4.5MCG INHALER 6GM INH SCH (18:19)
[2019-11-02 22:00] VITALS: BP 116/92
[2019-11-03] MEDS: CEPACOL LOZENGE PO PRN (05:15)
[2019-11-03] MEDS: MORPHINE 2 MG/ML 1ML VIAL (J2270) IV PRN ×3 (05:15→19:58)
[2019-11-03] MEDS: ONDANSETRON 4MG/2ML VIAL IV PRN ×3 (05:15→19:57)
[2019-11-03 06:00] VITALS: BP 114/82
--- NOTE | 2019-11-03 06:51 | IPNPDOC ---
Date Seen The patient was seen on 11/03/19. Progress Note SUBJECTIVE: much improved this morning. Abdo pain improved. Passing gas. NO BM. Denies fevers, chills, n/v/d. OBJECTIVE PHYSICAL EXAMINATION: GENERAL APPEARANCE: malaise, discomfort. HEENT: PERRLA CARDIOVASCULAR: RRR, NORMAL S1,S2. LUNGS: CTAB. ABDOMEN: MILDLY DISTENDED, BS HYPERACTIVE, NGT clamped. MUSCULOSKELETAL: no deformity, normal ROM . EXTREMITIES: no edema, normal ROM . NEUROLOGICAL: no focal neuro deficits. PSYCHIATRIC: calm, cooperative. LABORATORY DATA, IMAGING STUDIES, MICROBIOLOGY: Please see below. DVT prophylaxis ordered?: Y ASSESSMENT AND PLAN: 64 yo F with a hx of HTN, anxiety, depression, COPD, complicated diverticulitis with colectomy, colostomy (reversed), L inguinal hernia repair (open) and R hip arthroplasty. Admitted for SBO likely 2/2 abdominal adhesions. Trial conservative therapy. Surgery on consult, Dr. Jung. PROBLEMS: 1. SBO: 2/2 abdominal adhesions. Gen Sx on consult. Discussed with Dr. Jung NGT clamped. Avance to clears if low residuals. Pain control morphine 2 mg q6h prn IV. Zofran IV prn. IVF D5NS 125 cc/hr. Daily abdo plain film. 2. HTN: home meds when tolerating PO. Lisinopril-HCTZ 10-12.5. elevated bp on a dmision likely 2/2 pain. monitor. IV prn if needed depending on floor paramaters. Normotensive today. 3. Anxiety and depression. home med when PO. Citalopram 40 mg daily. 4. COPD: albuterol. symbicort. 5. Macrocytosis: check b12, folate 6. pre-DM: A1c 6.0. Fasting BG 164, possibly due to stress reaction. PCP follow up. DVT PPX: lovenox 40 mg sc daily. Dispo: home once medically clear. VS, I&O, 24H, Fishbone Vital Signs/I&O Vital Signs Date Time Temp Pulse Resp B/P (MAP) Pulse Ox O2 Delivery O2 Flow Rate FiO2 11/03/19 06:00 97.7 64 20 114/82 (93) 91 Room Air I&O- Last 24 Hours up to 6 AM 11/03/19 06:00 Intake Total 2000 ml Output Total 0 ml Balance 2000 ml JAZMIN THOMPSON MD Nov 03, 2019 06:51
[2019-11-03] MEDS: D5W/0.9% SODIUM CHLORIDE 1,000 ML IV SCH (06:57)
[2019-11-03 08:02] LABS: BASO % 0.3 % (0.0-1.0); EOS # 0.4 10^3/uL (0.0-0.5); EOS % 4.2 % (0.0-3.0); HEMATOCRIT 38.9 % (36.0-47.0); LYMPH # 2.5 10^3/uL (1.5-5.0); LYMPH % 24.2 % (24.0-44.0); MEAN CORPUSCULAR HEMOGLOBIN 33.6 pg (27.0-33.0); MEAN CORPUSCULAR HGB CONC 32.4 g/dl (32.0-36.5); MEAN CORPUSCULAR VOLUME 103.7 fl (80.0-96.0); MONO % 9.1 % (0.0-5.0); NEUTROPHILS # 6.5 10^3/uL (1.5-8.5); NEUTROPHILS % 61.9 % (36.0-66.0); PLATELET COUNT, AUTOMATED 373 10^3/uL (150-450); RED BLOOD COUNT 3.75 10^6/uL (4.00-5.40); WHITE BLOOD COUNT 10.4 10^3/uL (4.0-10.0)
[2019-11-03] MEDS: SYMBICORT 160/4.5MCG INHALER 6GM INH SCH ×2 (08:03→18:26)
[2019-11-03 08:08] LABS: HEMOGLOBIN 12.6 g/dl (12.0-15.5)
[2019-11-03 08:22] LABS: ALBUMIN 3.1 GM/DL (3.2-5.2); ALT/SGPT 28 U/L (12-78); BILIRUBIN,TOTAL 0.4 MG/DL (0.2-1.0); BLOOD UREA NITROGEN 10 MG/DL (7-18); CALCIUM LEVEL 8.6 MG/DL (8.8-10.2); CARBON DIOXIDE LEVEL 34 MEQ/L (21-32); CHLORIDE LEVEL 107 MEQ/L (98-107); CREATININE FOR GFR 0.89 MG/DL (0.55-1.30); GLOMERULAR FILTRATION RATE > 60.0 (>45); GLUCOSE, FASTING 119 MG/DL (70-100); SODIUM LEVEL 141 MEQ/L (136-145); TOTAL PROTEIN 5.9 GM/DL (6.4-8.2)
[2019-11-03] MEDS ORDERED: CitaloPRAM (CeleXA) 20 MG TAB PO SCH (09:00)
[2019-11-03] MEDS ORDERED: hydroCHLOROthiazide 12.5 MG CAPSULE PO SCH (09:00)
[2019-11-03] MEDS ORDERED: lisinopriL 10 MG TAB PO SCH (09:00)
[2019-11-03] MEDS: ENOXAPARIN 40MG/0.4ML SYRINGE (J1650 PER 10MG) SC SCH (09:56)
[2019-11-03 14:00] VITALS: BP 125/77
[2019-11-03 22:00] VITALS: BP 147/77
[2019-11-04] MEDS: ONDANSETRON 4MG/2ML VIAL IV PRN ×2 (02:27→08:38)
[2019-11-04] MEDS: MORPHINE 2 MG/ML 1ML VIAL (J2270) IV PRN ×2 (02:28→08:38)
[2019-11-04 06:00] VITALS: BP 157/74
[2019-11-04] MEDS: SYMBICORT 160/4.5MCG INHALER 6GM INH SCH ×2 (06:10→18:00)
[2019-11-04] MEDS: ENOXAPARIN 40MG/0.4ML SYRINGE (J1650 PER 10MG) SC SCH (08:38)
--- NOTE | 2019-11-04 10:09 | REPVR ---
PROCEDURE INFORMATION: Exam: XR Abdomen, 1 View Exam date and time: 11/04/2019 6:00 AM Age: 64 years old Clinical indication: Condition or disease; Other: Obstruction; Additional info: Small bowel obstruction TECHNIQUE: Imaging protocol: XR of the abdomen. Views: Frontal supine view of the abdomen. 1 View. COMPARISON: 1. UT - Abdomen,Flat Plate KUB 11/03/2019 8:36:35 AM 2. CR - Abdomen,Flat Upright,PA CHEST 11/02/2019 7:23 AM FINDINGS: Tubes, catheters and devices: A transesophageal enteric tube courses over the mediastinum its tip overlies the abdominal left upper quadrant at the expected location of the stomach. The enteric tube side port lies at the region of the gastroesophageal junction. Gastrointestinal tract: Gas is present within the stomach, small bowel, colon, and rectum. Nonobstructive bowel gas pattern. The dilated gas-filled small bowel present on 11/02/2019 has improved. Organs: No organomegaly is identified. Bones/joints: Multilevel degenerative spine disease. Right total hip arthroplasty hardware, incompletely imaged. Mild left hip osteoarthritis. Soft tissues: Pelvic surgical clips. IMPRESSION: 1. Support apparatus as described. 2. Nonobstructive bowel gas pattern. The dilated gas-filled small bowel present on 11/02/2019 has improved. Electronically signed by: Tashi Holloway On 11/04/2019 10:09:23 AM
--- NOTE | 2019-11-04 13:57 | IPNPDOC ---
Date Seen The patient was seen on 11/04/19. Progress Note SUBJECTIVE: much improved this morning. Abdo pain improved. Passing gas. NO BM. Denies fevers, chills, n/v/d. OBJECTIVE PHYSICAL EXAMINATION: GENERAL APPEARANCE: malaise, discomfort. HEENT: PERRLA CARDIOVASCULAR: RRR, NORMAL S1,S2. LUNGS: CTAB. ABDOMEN: MILDLY DISTENDED, BS HYPERACTIVE, NGT draining. MUSCULOSKELETAL: no deformity, normal ROM . EXTREMITIES: no edema, normal ROM . NEUROLOGICAL: no focal neuro deficits. PSYCHIATRIC: calm, cooperative. LABORATORY DATA, IMAGING STUDIES, MICROBIOLOGY: Please see below. PLAIN FILM ABDOMEN: IMPRESSION: 1. Support apparatus as described. 2. Nonobstructive bowel gas pattern. The dilated gas-filled small bowel present on 11/02/2019 has improved. DVT prophylaxis ordered?: Y ASSESSMENT AND PLAN: 64 yo F with a hx of HTN, anxiety, depression, COPD, complicated diverticulitis with colectomy, colostomy (reversed), L inguinal hernia repair (open) and R hip arthroplasty. Admitted for SBO likely 2/2 abdominal adhesions. Trial conservative therapy. Surgery on consult, Dr. Jung. PROBLEMS: 1. SBO: 2/2 abdominal adhesions. WBC normalized. Gen Sx on consult. Trial NGT clamp. Avance to clears if low residuals. Pain control morphine 2 mg q6h prn IV. Zofran IV prn. IVF D5NS 125 cc/hr. Abdo plain film: improved distension. 2. HTN: home meds when tolerating PO. Lisinopril-HCTZ 10-12.5. elevated bp on admision likely 2/2 pain. monitor. IV prn if needed depending on floor paramaters. Normotensive today. 3. Anxiety and depression. home med when PO. Citalopram 40 mg daily. 4. COPD: albuterol. symbicort. 5. Macrocytosis: check b12, folate 6. pre-DM: A1c 6.0. Fasting BG 164, possibly due to stress reaction. PCP follow up. DVT PPX: lovenox 40 mg sc daily. Dispo: home once medically clear. VS, I&O, 24H, Fishbone Vital Signs/I&O Vital Signs Date Time Temp Pulse Resp B/P (MAP) Pulse Ox O2 Delivery O2 Flow Rate FiO2 11/04/19 08:48 20 8/22/20 06:00 97.2 61 157/74 (101) 90 Room Air I&O- Last 24 Hours up to 6 AM 11/04/19 06:00 Intake Total 2120 ml Output Total 1900 ml Balance 220 ml Laboratory Data 24H LABS Vital Signs Date Time Temp Pulse Resp B/P (MAP) Pulse Ox O2 Delivery O2 Flow Rate FiO2 11/04/19 08:48 20 11/04/19 08:38 18 11/04/19 06:00 97.2 61 18 157/74 (101) 90 Room Air 11/04/19 02:28 18 11/03/19 22:00 98.6 66 18 147/77 (100) 90 Room Air 11/03/19 19:58 20 11/03/19 14:05 16 11/03/19 14:00 98.2 60 18 125/77 (93) 88 Room Air Intake & Output 11/04/19 06:00 Intake Total 2120 ml Output Total 1900 ml Balance 220 ml Current Medications Medications (Trade) Dose Ordered Sig/Ferdinand Route PRN Reason Start Time Stop Time Status Last Admin Dose Admin Budesonide/ Formoterol Fumarate (Symbicort 160/ 4.5mcg) 2 puff RBID INH 11/02/19 20:00 11/04/19 06:10 2 PUFF Cetylpyridinium Chloride (Cepacol) 1 marguerite Q4HP PRN PO COUGH/SORE THROAT 11/03/19 04:00 11/03/19 05:15 1 MARGUERITE Enoxaparin Sodium (Lovenox) 40 mg DAILY SC 11/03/19 09:00 11/04/19 08:38 40 MG Morphine Sulfate (Morphine Sulfate Inj) 2 mg Q6HP PRN IV Severe pain 11/02/19 11:45 11/04/19 08:38 2 MG Ondansetron HCl (ZOFRAN INJection) 4 mg Q6HP PRN IV nausea 11/02/19 11:45 11/04/19 08:38 4 MG JAZMIN THOMPSON MD Nov 04, 2019 13:42
[2019-11-04 14:00] VITALS: BP 158/74
[2019-11-04 15:22] LABS: ALBUMIN 3.3 GM/DL (3.2-5.2); ALT/SGPT 27 U/L (12-78); BILIRUBIN,TOTAL 0.5 MG/DL (0.2-1.0); BLOOD UREA NITROGEN 12 MG/DL (7-18); CALCIUM LEVEL 9.1 MG/DL (8.8-10.2); CARBON DIOXIDE LEVEL 33 MEQ/L (21-32); CHLORIDE LEVEL 104 MEQ/L (98-107); CREATININE FOR GFR 0.71 MG/DL (0.55-1.30); GLOMERULAR FILTRATION RATE > 60.0 (>45); GLUCOSE, FASTING 82 MG/DL (70-100); SODIUM LEVEL 140 MEQ/L (136-145); TOTAL PROTEIN 6.5 GM/DL (6.4-8.2)
[2019-11-04] MEDS: CEPACOL LOZENGE PO PRN ×2 (17:36→21:07)
[2019-11-04] MEDS: LR 1,000 ML IV SCH (21:07)
[2019-11-04 22:00] VITALS: BP 176/80
[2019-11-05] MEDS: CEPACOL LOZENGE PO PRN ×3 (01:36→23:13)
[2019-11-05] MEDS: ONDANSETRON 4MG/2ML VIAL IV PRN ×3 (03:49→20:26)
[2019-11-05] MEDS: MORPHINE 2 MG/ML 1ML VIAL (J2270) IV PRN ×3 (03:50→20:27)
[2019-11-05 06:00] VITALS: BP 168/80
[2019-11-05 07:39] LABS: BASO % 0.4 % (0.0-1.0); EOS # 0.3 10^3/uL (0.0-0.5); HEMATOCRIT 42.2 % (36.0-47.0); HEMOGLOBIN 13.8 g/dl (12.0-15.5); LYMPH # 2.5 10^3/uL (1.5-5.0); LYMPH % 24.3 % (24.0-44.0); MEAN CORPUSCULAR HEMOGLOBIN 33.5 pg (27.0-33.0); MEAN CORPUSCULAR HGB CONC 32.7 g/dl (32.0-36.5); MEAN CORPUSCULAR VOLUME 102.4 fl (80.0-96.0); MONO # 0.9 10^3/uL (0.0-0.8); MONO % 8.6 % (0.0-5.0); NEUTROPHILS # 6.5 10^3/uL (1.5-8.5); NEUTROPHILS % 63.3 % (36.0-66.0); PLATELET COUNT, AUTOMATED 373 10^3/uL (150-450); RED BLOOD COUNT 4.12 10^6/uL (4.00-5.40); WHITE BLOOD COUNT 10.3 10^3/uL (4.0-10.0)
[2019-11-05] MEDS: SYMBICORT 160/4.5MCG INHALER 6GM INH SCH ×2 (08:10→18:22)
[2019-11-05] MEDS: ENOXAPARIN 40MG/0.4ML SYRINGE (J1650 PER 10MG) SC SCH (09:06)
[2019-11-05 14:00] VITALS: BP 150/79
--- NOTE | 2019-11-05 14:18 | IPNPDOC ---
Date Seen The patient was seen on 11/05/19. Progress Note SUBJECTIVE: Patient seen and examined at bedside. States that did well last night when tube was clamped until approx 4 am, when she developed worsening lower abdominal pain. She remains NPO with ice ships. She denies fevers, chills, n/v/d, as well as chest pain and palpitations. PHYSICAL EXAMINATION: GENERAL APPEARANCE: malaise, discomfort. HEENT: PERRLA CARDIOVASCULAR: RRR, NORMAL S1,S2. LUNGS: CTAB. ABDOMEN: MILDLY DISTENDED, BS HYPERACTIVE, NGT draining. MUSCULOSKELETAL: no deformity, normal ROM . EXTREMITIES: no edema, normal ROM . NEUROLOGICAL: no focal neuro deficits. PSYCHIATRIC: calm, cooperative. LABORATORY DATA, IMAGING STUDIES, MICROBIOLOGY: Please see below. PLAIN FILM ABDOMEN: IMPRESSION: 1. Support apparatus as described. 2. Nonobstructive bowel gas pattern. The dilated gas-filled small bowel present on 11/02/2019 has improved. DVT prophylaxis ordered?: Y ASSESSMENT AND PLAN: 64 yo F with a hx of HTN, anxiety, depression, COPD, complicated diverticulitis with colectomy, colostomy (reversed), L inguinal hernia repair (open) and R hip arthroplasty. Admitted for SBO likely 2/2 abdominal adhesions. Trial conservative therapy. Surgery on consult, Dr. Brice bernardo. PROBLEMS: 1. SBO: 2/2 abdominal adhesions. WBC normalized. Gen Sx on consult. Trial NGT clamp not tolerated Pain control morphine 2 mg q6h prn IV. Zofran IV prn. IVF D5NS 125 cc/hr. Abdo plain film: improved distension. Discussed with Dr. Chavez. Ordered small bowel follow through study. To f/u. 2. HTN: home meds when tolerating PO. Lisinopril-HCTZ 10-12.5. elevated bp on admission likely 2/2 pain. monitor. IV prn if needed depending on floor paramaters. Normotensive today. 3. Anxiety and depression. home med when PO. Citalopram 40 mg daily. 4. COPD: albuterol. symbicort. 5. Macrocytosis: check b12, folate 6. pre-DM: A1c 6.0. Fasting BG 164, possibly due to stress reaction. PCP follow up. DVT PPX: lovenox 40 mg sc daily. Dispo: home once medically clear. VS, I&O, 24H, Dong Vital Signs/I&O Vital Signs Date Time Temp Pulse Resp B/P (MAP) Pulse Ox O2 Delivery O2 Flow Rate FiO2 11/05/19 12:19 18 11/05/19 06:00 98.3 57 168/80 (109) 91 Room Air I&O- Last 24 Hours up to 6 AM 11/05/19 05:59 Intake Total 120 ml Output Total 1500 ml Balance -1380 ml Laboratory Data 24H LABS Laboratory Tests 2 11/04/19 14:40: Anion Gap 3L, Glomerular Filtration Rate > 60.0, Calcium Level 9.1, Total Bilirubin 0.5, Aspartate Amino Transf (AST/SGOT) 26, Alanine Aminotransferase (ALT/SGPT) 27, Alkaline Phosphatase 76, Total Protein 6.5, Albumin 3.3, Albumin/Globulin Ratio 1.0L 11/05/19 07:00: Immature Granulocyte % (Auto) 0.4, Neutrophils (%) (Auto) 63.3, Lymphocytes (%) (Auto) 24.3, Monocytes (%) (Auto) 8.6H, Eosinophils (%) (Auto) 3.0, Basophils (%) (Auto) 0.4, Neutrophils # (Auto) 6.5, Lymphocytes # (Auto) 2.5, Monocytes # (Auto) 0.9H, Eosinophils # (Auto) 0.3, Basophils # (Auto) 0.0, Nucleated Red Blood Cells % (auto) 0.0 CBC/BMP Laboratory Tests 11/04/19 14:40 11/05/19 07:00 JAZMIN THOMPSON MD Nov 05, 2019 14:18
[2019-11-05] MEDS: LR 1,000 ML IV SCH (16:07)
[2019-11-05 22:00] VITALS: BP 163/81
[2019-11-06] MEDS: LR 1,000 ML IV SCH (02:21)
[2019-11-06] MEDS: ONDANSETRON 4MG/2ML VIAL IV PRN ×4 (02:21→23:57)
[2019-11-06] MEDS: MORPHINE 2 MG/ML 1ML VIAL (J2270) IV PRN ×4 (02:22→23:57)
[2019-11-06 06:00] VITALS: BP 162/81
[2019-11-06] MEDS: SYMBICORT 160/4.5MCG INHALER 6GM INH SCH ×2 (07:31→18:07)
[2019-11-06] MEDS: ENOXAPARIN 40MG/0.4ML SYRINGE (J1650 PER 10MG) SC SCH (08:11)
[2019-11-06] MEDS ORDERED: E-Z-PAQUE 96% w/w SUSP 176GM BTL As Ordered ONE ×2 (08:26→12:31)
[2019-11-06 09:21] LABS: BASO # 0.1 10^3/uL (0.0-0.2); BASO % 0.5 % (0.0-1.0); EOS # 0.3 10^3/uL (0.0-0.5); EOS % 2.9 % (0.0-3.0); HEMATOCRIT 40.8 % (36.0-47.0); HEMOGLOBIN 13.9 g/dl (12.0-15.5); LYMPH # 1.9 10^3/uL (1.5-5.0); LYMPH % 19.8 % (24.0-44.0); MEAN CORPUSCULAR HGB CONC 34.1 g/dl (32.0-36.5); MEAN CORPUSCULAR VOLUME 102.8 fl (80.0-96.0); MONO # 0.8 10^3/uL (0.0-0.8); MONO % 8.6 % (0.0-5.0); NEUTROPHILS # 6.4 10^3/uL (1.5-8.5); NEUTROPHILS % 67.9 % (36.0-66.0); PLATELET COUNT, AUTOMATED 353 10^3/uL (150-450); RED BLOOD COUNT 3.97 10^6/uL (4.00-5.40); WHITE BLOOD COUNT 9.4 10^3/uL (4.0-10.0)
[2019-11-06] MEDS: CEPACOL LOZENGE PO PRN ×2 (09:38→20:02)
[2019-11-06 09:51] LABS: BLOOD UREA NITROGEN 14 MG/DL (7-18); CALCIUM LEVEL 9.2 MG/DL (8.8-10.2); CARBON DIOXIDE LEVEL 28 MEQ/L (21-32); CHLORIDE LEVEL 103 MEQ/L (98-107); CREATININE FOR GFR 0.74 MG/DL (0.55-1.30); GLOMERULAR FILTRATION RATE > 60.0 (>45); GLUCOSE, FASTING 75 MG/DL (70-100); POTASSIUM SERUM 4.6 MEQ/L (3.5-5.1); SODIUM LEVEL 139 MEQ/L (136-145)
[2019-11-06] MEDS ORDERED: LORazepam 2 MG/ML VIAL IV STA (12:06)
[2019-11-06 15:48] LABS: FOLATE 11.5 NG/ML (>5.4); VITAMIN B12 LEVEL 888 PG/ML (247-911)
--- NOTE | 2019-11-06 20:18 | IPNPDOC ---
Date Seen The patient was seen on 11/06/19. Progress Note SUBJECTIVE: Seen and examined at bedside. Developed lower abdomen pain once more overnight after NG clamped. Passing gas. No BM. Remains NPO. Afebrie. VSS. Peding small bowel follow through study. OBJECTIVE PHYSICAL EXAMINATION: VITAL SIGNS: Please see below. GENERAL APPEARANCE: malaise, discomfort, anxious HEENT: PERRLA CARDIOVASCULAR: RRR, NORMAL S1,S2. LUNGS: CTAB. ABDOMEN: MILDLY DISTENDED, BS HYPERACTIVE, NGT in place, minimal drainage MUSCULOSKELETAL: no deformity, normal ROM . EXTREMITIES: no edema, normal ROM . NEUROLOGICAL: no focal neuro deficits. PSYCHIATRIC: calm, cooperative. LABORATORY DATA, IMAGING STUDIES, MICROBIOLOGY: Please see below. DVT prophylaxis ordered?: Y ASSESSMENT AND PLAN: 64 yo F with a hx of HTN, anxiety, depression, COPD, complicated diverticulitis with colectomy, colostomy (reversed), L inguinal hernia repair (open) and R hip arthroplasty. Admitted for SBO likely 2/2 abdominal adhesions. Trial conservative therapy. Surgery on consult, Dr. Alfredo tarango. PROBLEMS: 1. SBO: 2/2 abdominal adhesions. WBC normalized. Gen Sx on consult. Trial NGT clamp not tolerated Pain control morphine 2 mg q6h prn IV. Zofran IV prn. LR. Pending results of SBFTS. Discussed with Dr. Jung. If study showing a transition point, will consider OR, however prelim reading showing likely resolution. Clamp NGT overnight. Reassess in AM. 2. HTN: home meds when tolerating PO. Lisinopril-HCTZ 10-12.5. 3. Anxiety and depression. home med when PO. Citalopram 40 mg daily. 4. COPD: albuterol. symbicort. 5. Macrocytosis: check b12, folate 6. pre-DM: A1c 6.0. Fasting BG 164, possibly due to stress reaction. PCP follow up. DVT PPX: lovenox 40 mg sc daily. Dispo: home once medically clear. VS, I&O, 24H, Fishbone Vital Signs/I&O Vital Signs Date Time Temp Pulse Resp B/P (MAP) Pulse Ox O2 Delivery O2 Flow Rate FiO2 11/06/19 18:01 17 11/06/19 06:00 98.5 59 162/81 (108) 91 Room Air I&O- Last 24 Hours up to 6 AM 11/06/19 06:00 Intake Total 1020 ml Output Total 800 ml Balance 220 ml Laboratory Data 24H LABS Laboratory Tests 2 11/06/19 08:49: Anion Gap 8, Glomerular Filtration Rate > 60.0, Calcium Level 9.2 11/06/19 08:54: Immature Granulocyte % (Auto) 0.3, Neutrophils (%) (Auto) 67.9H, Lymphocytes (%) (Auto) 19.8L, Monocytes (%) (Auto) 8.6H, Eosinophils (%) (Auto) 2.9, Basophils (%) (Auto) 0.5, Neutrophils # (Auto) 6.4, Lymphocytes # (Auto) 1.9, Monocytes # (Auto) 0.8, Eosinophils # (Auto) 0.3, Basophils # (Auto) 0.1, Nucleated Red Blood Cells % (auto) 0.0 CBC/BMP Laboratory Tests 11/06/19 08:49 11/06/19 08:54 JAZMIN THOMPSON MD Nov 06, 2019 20:18
[2019-11-06 22:00] VITALS: BP 160/80
[2019-11-07] MEDS: LR 1,000 ML IV SCH ×3 (00:11→23:42)
[2019-11-07] MEDS: ONDANSETRON 4MG/2ML VIAL IV PRN ×2 (05:56→12:24)
[2019-11-07] MEDS: MORPHINE 2 MG/ML 1ML VIAL (J2270) IV PRN ×2 (05:56→12:25)
[2019-11-07 06:00] VITALS: BP 176/84
[2019-11-07 06:56] LABS: BASO % 0.4 % (0.0-1.0); EOS # 0.2 10^3/uL (0.0-0.5); EOS % 1.4 % (0.0-3.0); HEMATOCRIT 41.6 % (36.0-47.0); HEMOGLOBIN 14.1 g/dl (12.0-15.5); LYMPH # 1.7 10^3/uL (1.5-5.0); LYMPH % 14.7 % (24.0-44.0); MEAN CORPUSCULAR HEMOGLOBIN 34.1 pg (27.0-33.0); MEAN CORPUSCULAR HGB CONC 33.9 g/dl (32.0-36.5); MEAN CORPUSCULAR VOLUME 100.7 fl (80.0-96.0); MONO # 1.1 10^3/uL (0.0-0.8); MONO % 9.8 % (0.0-5.0); NEUTROPHILS # 8.3 10^3/uL (1.5-8.5); NEUTROPHILS % 73.3 % (36.0-66.0); PLATELET COUNT, AUTOMATED 379 10^3/uL (150-450); RED BLOOD COUNT 4.13 10^6/uL (4.00-5.40); WHITE BLOOD COUNT 11.3 10^3/uL (4.0-10.0)
[2019-11-07 07:27] LABS: ALBUMIN 3.3 GM/DL (3.2-5.2); ALT/SGPT 27 U/L (12-78); BILIRUBIN,TOTAL 0.9 MG/DL (0.2-1.0); BLOOD UREA NITROGEN 13 MG/DL (7-18); CALCIUM LEVEL 9.4 MG/DL (8.8-10.2); CARBON DIOXIDE LEVEL 31 MEQ/L (21-32); CHLORIDE LEVEL 100 MEQ/L (98-107); CREATININE FOR GFR 0.75 MG/DL (0.55-1.30); GLOMERULAR FILTRATION RATE > 60.0 (>45); GLUCOSE, FASTING 90 MG/DL (70-100); POTASSIUM SERUM 4.1 MEQ/L (3.5-5.1); SODIUM LEVEL 135 MEQ/L (136-145); TOTAL PROTEIN 7.1 GM/DL (6.4-8.2)
[2019-11-07] MEDS: SYMBICORT 160/4.5MCG INHALER 6GM INH SCH ×2 (07:28→19:40)
[2019-11-07] MEDS: ENOXAPARIN 40MG/0.4ML SYRINGE (J1650 PER 10MG) SC SCH (08:15)
--- NOTE | 2019-11-07 12:57 | IPNPDOC ---
Text Note Date of Service The patient was seen on 11/07/19. NOTE SUBJECTIVE: Seen and examined at bedside. NG now clamped. Passing gas. Abdom inal distension less today as per patient. No BM. Remains NPO. Afebrie. Pending small bowel follow through study results. PHYSICAL EXAMINATION: VITAL SIGNS: Please see below. GENERAL APPEARANCE: malaise, discomfort, anxious HEENT: PERRLA CARDIOVASCULAR: RRR, NORMAL S1,S2. No rub murmur or gallop. LUNGS: CTAB. ABDOMEN: MILDLY DISTENDED, BS Normal. NGT in place, minimal drainage, Soft nontender. MUSCULOSKELETAL: no deformity, normal ROM . EXTREMITIES: no edema, normal ROM . NEUROLOGICAL: no focal neuro deficits. PSYCHIATRIC: calm, cooperative. LABORATORY DATA, IMAGING STUDIES, MICROBIOLOGY: Please see below. DVT prophylaxis ordered?: Y ASSESSMENT AND PLAN: 64 yo F with a hx of HTN, anxiety, depression, COPD, complicated diverticulitis with colectomy, colostomy (reversed), L inguinal hernia repair (open) and R hip arthroplasty. Admitted for SBO likely 2/2 abdominal adhesions. Trial conservative therapy. Surgery following. SBO: 2/2 abdominal adhesions. WBC normalized. Gen Sx on consult. NGT clamped. Pending results of SBFTS. As per surgery if study shows a transition point, will consider OR, however prelim reading showing likely resolution. HTN: home meds when tolerating PO. Lisinopril-HCTZ 10-12.5. will continue only with Lisinopril. Anxiety and depression. Citalopram 40 mg daily. COPD: albuterol. symbicort. Macrocytosis: b12, folate normal. DVT PPX: lovenox 40 mg sc daily. VS,Fishbone, I+O VS, Fishbone, I+O Laboratory Tests 11/07/19 06:40 Vital Signs Date Time Temp Pulse Resp B/P (MAP) Pulse Ox O2 Delivery O2 Flow Rate FiO2 11/07/19 12:35 16 11/07/19 06:00 98.2 69 176/84 (114) 90 Room Air I&O- Last 24 Hours up to 6 AM 11/07/19 05:59 Intake Total 1730 ml Output Total 1555 ml Balance 175 ml FRANKLIN DAO MD Nov 07, 2019 12:57
[2019-11-07 14:00] VITALS: BP 177/92
[2019-11-07 14:05] VITALS: BP 168/88
[2019-11-07 20:00] VITALS: BP 167/75
[2019-11-07 23:45] VITALS: BP 163/74
[2019-11-08 08:20] LABS: BASO % 0.4 % (0.0-1.0); EOS # 0.2 10^3/uL (0.0-0.5); EOS % 2.6 % (0.0-3.0); HEMATOCRIT 41.5 % (36.0-47.0); HEMOGLOBIN 13.9 g/dl (12.0-15.5); LYMPH # 2.3 10^3/uL (1.5-5.0); LYMPH % 25.6 % (24.0-44.0); MEAN CORPUSCULAR HEMOGLOBIN 33.7 pg (27.0-33.0); MEAN CORPUSCULAR HGB CONC 33.5 g/dl (32.0-36.5); MEAN CORPUSCULAR VOLUME 100.5 fl (80.0-96.0); MONO % 10.9 % (0.0-5.0); NEUTROPHILS # 5.4 10^3/uL (1.5-8.5); NEUTROPHILS % 60.1 % (36.0-66.0); PLATELET COUNT, AUTOMATED 403 10^3/uL (150-450); RED BLOOD COUNT 4.13 10^6/uL (4.00-5.40); WHITE BLOOD COUNT 8.9 10^3/uL (4.0-10.0)
[2019-11-08] MEDS: ENOXAPARIN 40MG/0.4ML SYRINGE (J1650 PER 10MG) SC SCH (08:20)
[2019-11-08] MEDS: SYMBICORT 160/4.5MCG INHALER 6GM INH SCH (08:23)
[2019-11-08 08:25] VITALS: BP 147/70
[2019-11-08 08:42] LABS: BLOOD UREA NITROGEN 10 MG/DL (7-18); CALCIUM LEVEL 9.4 MG/DL (8.8-10.2); CARBON DIOXIDE LEVEL 28 MEQ/L (21-32); CHLORIDE LEVEL 105 MEQ/L (98-107); GLOMERULAR FILTRATION RATE > 60.0 (>45); GLUCOSE, FASTING 103 MG/DL (70-100); POTASSIUM SERUM 4.2 MEQ/L (3.5-5.1); SODIUM LEVEL 141 MEQ/L (136-145)
[2019-11-08] MEDS ORDERED: SENOKOT S TAB PO SCH (09:00)
[2019-11-08] MEDS: BISACODYL 10 MG SUPP PR PRN ×2 (12:06→13:10)
--- NOTE | 2019-11-08 13:32 | IPNPDOC ---
Text Note Date of Service The patient was seen on 11/08/19. NOTE SUBJECTIVE: Seen and examined at bedside. NG tube removed, on clears with plan to advance as tolerated, passing flatus no bowel movement yet will start on bowel regimen. No fever or chills, abdominal distension less. PHYSICAL EXAMINATION: VITAL SIGNS: Please see below. GENERAL APPEARANCE: laying in bed in no discomfort. HEENT: PERRLA CARDIOVASCULAR: RRR, NORMAL S1,S2. No rub murmur or gallop. LUNGS: CTAB. ABDOMEN: BS Normal. Soft nontender. No distension. MUSCULOSKELETAL: no deformity, normal ROM . EXTREMITIES: no edema, normal ROM . NEUROLOGICAL: no focal neuro deficits. PSYCHIATRIC: calm, cooperative. LABORATORY DATA, IMAGING STUDIES, MICROBIOLOGY: reviewed ASSESSMENT AND PLAN: 64 yo F with a hx of HTN, anxiety, depression, COPD, complicated diverticulitis with colectomy, colostomy (reversed), L inguinal hernia repair (open) and R hip arthroplasty. Admitted for SBO likely 2/2 abdominal adhesions. SBO: 2/2 abdominal adhesions. resolved with bowel rest, NG tube. tolerating oral diet diet to be advanced as per surgery. Bowel regimen HTN: home meds when tolerating PO. Lisinopril-HCTZ 10-12.5. will continue only with Lisinopril. Anxiety and depression. Citalopram 40 mg daily. COPD: albuterol. symbicort. Macrocytosis: b12, folate normal. DVT PPX: lovenox 40 mg sc daily. VS,Fishbone, I+O VS, Fishbone, I+O Laboratory Tests 11/08/19 07:22 Vital Signs Date Time Temp Pulse Resp B/P (MAP) Pulse Ox O2 Delivery O2 Flow Rate FiO2 11/08/19 08:25 98.0 59 18 147/70 (95) 95 Room Air I&O- Last 24 Hours up to 6 AM 11/08/19 06:00 Intake Total 2640 ml Output Total 1050 ml Balance 1590 ml Discharge Summary General Date of Admission Nov 02, 2019 at 11:37 Date of Discharge 11/08/19 Discharge Summary PROCEDURES PERFORMED DURING STAY: [None]. DISCHARGE DIAGNOSES: SBO from adhesions treated conservatively SECONDARY DIAGNOSIS: HTN, anxiety, depression, COPD, Obesity, complicated diverticulitis with colectomy, colostomy (reversed), L inguinal hernia repair (open) and R hip arthroplasty. COMPLICATIONS/CHIEF COMPLAINT: Nausea And Vomiting. HOSPITAL COURSE: 64 year old female was admitted for abdominal pain , distension, nausea and vomiting and constipations and was found to have Small bowel obstruction felt to be due to adhesions. She was managed conservatively with NG tube, bowel rest, IVF with good response. Her SBO resolved without surgical intervention. At present she has been passing flatus and had a bowel movement. She has been tolerating diet. She is being discharged home in stable and improved condition. DISCHARGE MEDICATIONS: Please see below. ALLERGIES: Please see below. PHYSICAL EXAMINATION ON DISCHARGE: as above. LABORATORY DATA: Please see below. ACTIVITY: [As tolerated]. DIET: regular DISPOSITION: 01 Home, Self-Care. DISCHARGE INSTRUCTIONS: Follow up with Dr Jung in 1 week DISCHARGE CONDITION: [Stable]. TIME SPENT ON DISCHARGE: 35 minutes. Vital Signs/I&Os Vital Signs Date Time Temp Pulse Resp B/P (MAP) Pulse Ox O2 Delivery O2 Flow Rate FiO2 11/08/19 08:25 98.0 59 18 147/70 (95) 95 Room Air I&O- Last 24 Hours up to 6 AM 11/08/19 07:00 Intake Total 2640 ml Output Total 1050 ml Balance 1590 ml Laboratory Data Labs 24H Laboratory Tests 2 11/08/19 07:22: Immature Granulocyte % (Auto) 0.4, Neutrophils (%) (Auto) 60.1, Lymphocytes (%) (Auto) 25.6, Monocytes (%) (Auto) 10.9H, Eosinophils (%) (Auto) 2.6, Basophils (%) (Auto) 0.4, Neutrophils # (Auto) 5.4, Lymphocytes # (Auto) 2.3, Monocytes # (Auto) 1.0H, Eosinophils # (Auto) 0.2, Basophils # (Auto) 0.0, Nucleated Red Blood Cells % (auto) 0.0, Anion Gap 8, Glomerular Filtration Rate > 60.0, Calcium Level 9.4 CBC/BMP Laboratory Tests 11/08/19 07:22 Discharge Medications Scheduled Budesonide/Formoterol (Symbicort 160-4.5 Mcg Inhaler) 6 Gm Hfa.aer.ad, 1 PUFF INH QHS, (Reported) Citalopram Hydrobromide (Citalopram HBr) 40 Mg Tab, 40 MG PO DAILY, (Reported) Docusate Sodium (Stool Softener) 100 Mg Capsule, 100 MG PO BID Fluticasone Propionate (Flonase Allergy Relief) 50 Mcg/Act Spr, 2 SPRAYS NA DAILY, (Reported) Lisinopril/Hydrochlorothiazide (Lisinopril-Hctz 10-12.5 mg Tab) 1 Each Tablet, 1 TAB PO DAILY, (Reported) Trazodone HCl (Trazodone HCl) 100 Mg Tab, 200 MG PO QHS, (Reported) Scheduled PRN Albuterol Sulfate (Proair Hfa) 8.5 Gm Hfa.aer.ad, 2 PUFF INH for SHORTNESS OF BREATH, (Reported) Guaifenesin (Mucinex) 600 Mg Tab, 600 MG PO BID PRN for CONGESTION, (Reported) Nicotine (Nicotine Patch) 21 Mg/24 Hr Patch.td24, 21 MG TD DAILY PRN for NICOTINE WITHDRAWAL, (Reported) Allergies Coded Allergies: No Known Allergies (Unverified , 03/25/18) FRANKLIN DAO MD Nov 08, 2019 13:31
[2019-11-08] MEDS ORDERED: MM S100C PO (14:44)
--- NOTE | 2019-11-15 08:17 | CR ---
DATE: 11/02/2019 HISTORY OF PRESENT ILLNESS: The patient presents with a 12 to 18 hour history of crampy abdominal pain with nausea and vomiting, presents with abdominal distention and evidence of small bowel obstruction to the Emergency Room. She has had a significant history of diverticulitis with colectomy and colostomy. The colostomy was reversed. She has had an inguinal hernia repair. She has had an incisional hernia for quite a while. The CT scan initially showed possible transition zone within the hernia within the midline although I do not think that it is small bowel within that, it appears to be omentum within the hernia sac itself. Adjacent to this, I do see some decompressed small bowel and large bowel but once again I am not seeing it go into the hernia site itself in the infraumbilical area. In any case, she had an NG-tube placed and with this she had significant improvement of her abdominal distention and crampy abdominal pain and stated that she felt much better at this time. MEDICAL HISTORY: History of hypertension, anxiety and depression, history of COPD, history of diverticulitis, history of left inguinal hernia repair (open), history of right hip replacement, history of sigmoid colectomy with colostomy and then colostomy reversal. SOCIAL HISTORY: History of smoking. PHYSICAL EXAMINATION: GENERAL: Physical examination reveals a 64-year-old who looks stated age. HEENT: Unremarkable. NECK: Supple without adenopathy. LUNGS: Clear anteriorly. HEART: Regular. ABDOMEN: Distended, tympanitic throughout without any guarding or rebound. Mild discomfort with deep palpation. EXTREMITIES: Warm and well-perfused. IMPRESSION/PLAN: Patient has small bowel obstruction, however given her significant improvement with the NG-tube decompression, I anticipate this will be more likely to resolve with NG-tube decompression. Obviously we will see how she does overnight with the NG-tube in place. Right now I feel it is most likely adhesions causing the small bowel obstruction rather than the hernias that she has along the midline. She has some diastasis of the abdominal wall too and we may need to discuss this further as an outpatient whether this needs operative intervention or whether we can watch this expectantly. In any case, from a surgical standpoint I would recommend at this point NG-tube decompression and see she does overnight, follow-up x-rays in the morning and will determine our next course of action therein. No need for emergent surgical intervention is necessary at this time. I am not seeing any peritoneal signs although she has an elevated white count. I feel this is probably demargination associated with the stress/pain and possible slight dehydration. We will see what her follow-up white count is and if she develops any new progressive abdominal pain issues, etc. HÉCTORD
--- NOTE | 2019-11-22 15:53 | ECGEPIP ---
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
--- NOTE | 2019-12-11 08:57 | REP ---
SUPINE ABDOMEN, TWO VIEWS COMPARISON: Acute abdominal series of 11/02/2019. FINDINGS: There is an endotracheal tube with the tip in the abdominal left upper quadrant as an interval change. On the comparison study, there were distended small bowel loops. There are no distended bowel loops on the current study. There is no colonic distension. There are surgical clips in the pelvis. There is a total right hip arthroplasty. These findings are unchanged. There is degenerative disc disease in the lumbar spine, unchanged. On the comparison study, there was contrast in the kidneys, ureters, and bladder. This is no longer present. IMPRESSION: There has been interval placement of a nasogastric tube. The previous small bowel distension is no longer identified. MTDD
--- NOTE | 2019-12-11 08:58 | REP ---
KUB: TWO-VIEWS HISTORY: Small bowel obstruction. COMPARISON: KUB study 11/04/2019. FINDINGS: Supine views of the abdomen demonstrate a nasogastric tube in the left upper quadrant terminating in the upper gastric body. There are clips in the right and left pelvis. A prosthetic right hip is again noted. There is air in proximal and distal colonic loops without large or small bowel dilation visible on todays radiograph. IMPRESSION: No evidence of bowel obstruction. Surgical clips. Nasogastric tube. MTDD
--- NOTE | 2019-12-11 09:01 | REP ---
SMALL BOWEL FOLLOW THROUGH: The procedure was performed under the direct supervision of Dr. Fajardo. The images were reviewed with Dr. Fajardo. FINDINGS: The multi operation forming machine setter film shows no organomegaly or pathological masses. The intestinal gas pattern is nonspecific. There are surgical clips noted in the pelvis. The patient is status post right hip arthroplasty. There is an NG tube in place. Liquid barium was administered and the barium column was followed through the small bowel to the level of the internal ileum. Small bowel transit time is approximately 2 hours. During fluoroscopy, gentle palpation shows all loops are freely moveable and pliable. There is a low ventral hernia which contains a loop of small bowel. There is no evidence of stricture or obstruction. Spot filming of the terminal ileum shows it to be unremarkable. IMPRESSION: There is a low ventral hernia which contains a loop of small bowel. There is no evidence of stricture or obstruction. The examination is otherwise unremarkable. 1.3 minutes of fluoroscopy time was utilized for this procedure. [facility]
--- NOTE | 2019-12-11 09:02 | REP ---
ABDOMINAL SERIES: 3-VIEWS HISTORY: Abdominal pain. COMPARISON: Upright chest x-ray 12/27/2018. FINDINGS: Todays upright chest radiograph shows monitoring electrodes overlying the chest. The lungs are well-inflated and clear. Pleural angles are sharp. There is no evidence of infiltrate or free subdiaphragmatic air. Supine and erect views of the abdomen show contrast opacified urine in the renal collecting systems and urinary bladder. A right hip prosthesis is noted. There are clips in the right pelvis and left mid abdomen. There are dilated loops of small bowel in the central abdomen with paucity of distal gas. Findings are consistent with small bowel obstruction pattern. No evidence of free air. IMPRESSION: Small bowel obstruction pattern in the bowel gas. Post-contrast opacification of the kidneys and urinary bladder. No free air. MTDD
--- NOTE | 2019-12-22 13:09 | IPN ---
DATE: 11/03/2019 The patient was admitted yesterday with a small bowel obstruction and overall has had some flatus today. No nausea, no vomiting. Some crampy abdominal pain that resulted in flatus but otherwise has been afebrile overnight. Her white count has dropped down to 10.4 and overall she is feeling better. The majority of her pain has resolved. She has had no other complaints at this time. X-rays this morning, final results are pending, however I see a bunch of air within the colon itself and I am not seeing any dilated small bowel loops. Nasogastric (NG) tube is place. On her physical exam, abdomen is much less distended than it was yesterday and is really nontender. She has some mild discomfort with palpation in the right lower quadrant, but no significant guarding, rebound, or peritoneal signs. IMPRESSION/PLAN: Patient has evidence of resolution of her small bowel obstruction, but given still some crampy abdominal pain and discomfort that she is having intermittently, I do feel that it is reasonable to clamp her tube, see how much she has over the next several hours, although she really has not had much overnight and essentially had what she describes as 50 mL overnight, she initially had quite a bit out in the emergency room and since that time really has not had much. In any case, will clamp her nasogastric (NG) tube, check residuals in 4 hours, if she does not have any significant residual, will take out the nasogastric (NG) tube and start her on some clear liquids. BRITTNY
--- NOTE | 2019-12-22 13:10 | IPN ---
DATE: 11/04/2019. SUBJECTIVE: She was admitted on 11/02/2019 apparently with an obstruction related to a lower abdominal hernia. This was noted on CT scan. Yesterday she had a trial of NG clamping, but apparently developed some abdominal distention and pain. Today she reports she has been passing a good deal of flatus. She is not having any significant pain currently. She has been taking some ice chips. The NG tube was putting out very little. OBJECTIVE: VITALS: Show that she has been afebrile with a pulse in the upper 50s to 60s. Blood pressure is good. INTAKE & OUTPUT: Show that yesterday she had 2,100 in with 1,300 out; 600 of which was gastric drainage. She did have a bowel movement today. GENERAL: Patient is lying quietly on the hospital bed. She appears quite comfortable. She is alert and oriented HEART: Shows a regular rhythm and she is not tachycardic. LUNGS: Clear. ABDOMEN: Somewhat obese. She does have bowel sounds present in all four quadrants. Soft to palpation. There is some minimal tenderness low in the midline of the abdomen, which apparently is the site of her hernia. LABORATORY STUDIES: Today she had a chemistry profile that is pending actually. Yesterday her white blood cell count had fallen from 16,000 to 10,000. Her differential count was normal yesterday. IMAGING STUDIES: I reviewed her CT scan from the as well as x-rays from yesterday and today. On her plain abdominal x-ray today, she does have some air in her large bowel, but I do not see any definite dilated loops of small bowel. There is certainly no free air. I reviewed her CT scan and this does show a couple of hernias in the upper abdomen that have only some fatty tissue contained therein. In the lower abdomen, she has what amounts to a diastasis, which allows passage of bowel loops into the subcutaneous space. IMPRESSION: Patient reports that she is feeling better today and the x-ray does not show distinct evidence for a small bowel obstruction at this point. PLAN: We will clamp her tube and I encouraged her to be up out of bed ambulating. I encouraged her that she can still take some ice chips and sips of water. If she develops pain, then we will resume suction to her NG tube. Hopefully she will do well and we will be able to remove the tube soon. BRITTNY
--- NOTE | 2019-12-22 13:11 | IPN ---
DATE: 11/05/2019 HISTORY: Patient was admitted with a small bowel obstruction related to an abdominal wall hernia. She has been treated with a nasogastric (NG) tube for decompression and IV maintenance fluid. Yesterday, she was feeling better with no pain and I clamped her NG tube. She did very well with this until about 4 oclock this morning when she reports that she began to feel bloated and had more pain. She did not have any nausea or vomiting. She reports she continues to pass some flatus but she thinks not as much as yesterday. Therefore, the tube was put back to suction earlier this morning. VITAL SIGNS: Show that she has had a maximum temperature (T-max) of 99.3 at 10 oclock last night. Her pulse is in the 50s and 60s. Her blood pressure has been ranging up a little bit to as high as 176/80 over the last 24 hours. Intake and output show that yesterday she had 120 mL recorded in with 1100 recorded out. She was started on some IV fluid last evening and this is not recorded. PHYSICAL EXAMINATION: Patient is alert and oriented. She is somewhat anxious. She does not appear to be in significant pain. Heart exam shows a regular rhythm. Her lungs are clear. The abdomen is obese. She has an old midline scar from the epigastrium down to the suprapubic area. The abdomen is soft throughout. She does have bowel sounds present in all four quadrants. There may be some very mild discomfort to palpation low in the midline in the suprapubic region in particular. LABORATORY STUDIES: Show a white count of 10, hemoglobin 14, hematocrit 42, and a platelet count of 373,000. Differential count shows 63% neutrophils, 24 lymphocytes, and 9 monocytes. Chemistry profile was not repeated today as of yet. IMAGING: Patient had an abdominal x-ray today that shows some air scattered through the gastrointestinal (GI) tract, most of which appears to be within the large intestine. There is an area more centrally that is difficult to determine where the air lies. Certainly, she does not have obvious dilated small bowel loops. IMPRESSION: Patient developed a recurrence of her lower abdominal discomfort early this morning with her nasogastric (NG) tube clamped and it was placed back to suction. PLAN: I discussed with the patient options for further treatment at this point. Certainly, I am not going to take her to the operating room directly today but she does have persistent symptoms. I will leave her nasogastric (NG) tube to intermittent suction today. 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 She may be a patient who would benefit from a diagnostic small bowel followthrough series to see if we can document whether there remains some degree of obstruction. BRITTNY
== END 2019-11-08 16:30 | disposition home or self-care (01) | DRG 247 ==
LOC: M ED 05:40 → EDBD 05:40 → M ED INP 11:37 → M MS5PR 15:20 → M PED 11-07 15:28
PROVIDERS: ADMIT Family Medicine; ATTEND Internal Medicine Nephrology
DX: K56.50 Intestinal adhesions [bands], unspecified as to partial versus complete obstruction (principal); I10 Essential (primary) hypertension; F41.9 Anxiety disorder, unspecified; J44.9 Chronic obstructive pulmonary disease, unspecified; F17.200 Nicotine dependence, unspecified, uncomplicated; F32.9 Major depressive disorder, single episode, unspecified; D75.89 Other specified diseases of blood and blood-forming organs; R73.03 Prediabetes; Z79.899 Other long term (current) drug therapy; Z90.49 Acquired absence of other specified parts of digestive tract; Z96.641 Presence of right artificial hip joint

== ENCOUNTER → 2020-02-13 | Outpatient (REF) | payer MEDICARE, OTHER ==
[~2020-02-13] MED LIST changes: +ACET1TAB55 PO; +LISI10TA15 PO; +MM S100C PO; +NICO1DIS11 TD; +SYMB16INH INH
[2020-02-13 17:21] LABS: BASO # 0.1 10^3/uL (0.0-0.2); BASO % 0.6 % (0.0-1.0); EOS # 0.4 10^3/uL (0.0-0.5); EOS % 3.5 % (0.0-3.0); HEMATOCRIT 41.7 % (36.0-47.0); HEMOGLOBIN 13.2 g/dl (12.0-15.5); LYMPH % 20.3 % (24.0-44.0); MEAN CORPUSCULAR HEMOGLOBIN 32.3 pg (27.0-33.0); MEAN CORPUSCULAR HGB CONC 31.7 g/dl (32.0-36.5); MONO # 0.8 10^3/uL (0.0-0.8); MONO % 8.2 % (0.0-5.0); NEUTROPHILS # 6.6 10^3/uL (1.5-8.5); NEUTROPHILS % 66.8 % (36.0-66.0); PLATELET COUNT, AUTOMATED 455 10^3/uL (150-450); RED BLOOD COUNT 4.09 10^6/uL (4.00-5.40); WHITE BLOOD COUNT 9.9 10^3/uL (4.0-10.0)
[2020-02-13 17:49] LABS: ALBUMIN 3.8 GM/DL (3.2-5.2); BILIRUBIN,TOTAL 0.6 MG/DL (0.2-1.0); CALCIUM LEVEL 10.9 MG/DL (8.8-10.2); CHOLESTEROL RISK RATIO 4.583 (<5); CREATININE FOR GFR 1.16 MG/DL (0.55-1.30); GLOMERULAR FILTRATION RATE 49.9 (>45); POTASSIUM SERUM 5.3 MEQ/L (3.5-5.1); TOTAL PROTEIN 7.1 GM/DL (6.4-8.2)
[2020-02-13 17:53] LABS: FOLATE 7.5 NG/ML
== END ==
LOC: M LAB REF 16:26
PROVIDERS: ATTEND Physician Assistant
DX: E87.8 Other disorders of electrolyte and fluid balance, not elsewhere classified (principal); E78.5 Hyperlipidemia, unspecified; D75.89 Other specified diseases of blood and blood-forming organs

== ENCOUNTER → 2020-05-27 | Outpatient (REF) | payer MEDICARE, OTHER ==
[2020-05-27 17:36] LABS: BASO # 0.1 10^3/uL (0.0-0.2); BASO % 0.6 % (0.0-1.0); EOS # 0.2 10^3/uL (0.0-0.5); EOS % 2.3 % (0.0-3.0); HEMATOCRIT 41.4 % (36.0-47.0); HEMOGLOBIN 13.1 g/dl (12.0-15.5); LYMPH # 1.8 10^3/uL (1.5-5.0); LYMPH % 20.2 % (24.0-44.0); MEAN CORPUSCULAR HEMOGLOBIN 32.9 pg (27.0-33.0); MEAN CORPUSCULAR HGB CONC 31.6 g/dl (32.0-36.5); MONO # 0.7 10^3/uL (0.0-0.8); MONO % 8.3 % (2.0-8.0); NEUTROPHILS # 5.9 10^3/uL (1.5-8.5); NEUTROPHILS % 68.3 % (36.0-66.0); PLATELET COUNT, AUTOMATED 468 10^3/uL (150-450); RED BLOOD COUNT 3.98 10^6/uL (4.00-5.40); WHITE BLOOD COUNT 8.7 10^3/uL (4.0-10.0)
[2020-05-27 18:16] LABS: FERRITIN 29 NG/ML (8-252); IRON (FE) 68 UG/DL (50-170); PERCENT SATURATION 18.4 % (13.2-45.0); TOTAL IRON BINDING CAPACITY 370 UG/DL (250-450)
[2020-05-27 18:18] LABS: FOLATE > 24.0 NG/ML; VITAMIN B12 LEVEL 936 PG/ML
== END ==
LOC: M LAB REF 16:40
PROVIDERS: ATTEND Physician Assistant
DX: D64.9 Anemia, unspecified (principal)

== ENCOUNTER → 2020-08-15 | Outpatient (CLI) | payer MEDICARE, MEDICAID ==
--- NOTE | 2020-08-16 09:43 | REP ---
INDICATION: ABN RESULT OF OTHER CARDIOVASCULAR FUNCTION STUDY COMPARISON: None. TECHNIQUE: Real time english scale and Duplex Doppler evaluation of the bilateral lower extremity arterial vasculature using linear high frequency transducer. The study is somewhat limited due to patient body habitus and motion. FINDINGS: English scale and duplex doppler images demonstrate mild to moderate amounts of atheromatous plaquing with areas of mild narrowing. No stenosis is seen of the left lower extremity arterial structures. On the right there is approximately 2-1 stenosis of the profunda artery and 2.5-1 stenosis of the distal superficial femoral artery. There may be some degree of stenosis of the proximal posterior tibial artery, with decreased flow velocities and monophasic waveforms throughout that vessel. There is no occlusion. Doppler interrogation otherwise demonstrates diffuse biphasic and triphasic waveforms bilaterally, monophasic waveforms noted in the right profunda. Peak systolic velocities (cm/sec) Common femoral artery: Right 177; Left 192 Profunda femoris: Right 396; Left 124 SFA (proximal): Right 175; Left 195 SFA (mid): Right 107; Left 119 SFA (distal): Right 271; Left 185 Popliteal artery: Right 153; Left 138 TD (prox.): Right 40; Left 87 Tibioperoneal trunk: Right 78; Left 82 REGIONAL [employer]ESTER (prox.): Right 28; Left 61 [employer]AL FORESTER (distal): Right 15; Left 76 TD (distal): Right 50; Left 76 IMPRESSION: Bilateral plaquing as above, with no arterial occlusion. Mild stenoses noted of right profunda and distal SFA, with likely some degree of stenosis of the right posterior tibial artery. <Electronically signed by William English > 08/16/20 0915
== END ==
LOC: M RAD 13:49
PROVIDERS: ATTEND Physician Assistant
DX: I70.201 Unspecified atherosclerosis of native arteries of extremities, right leg (principal); R94.39 Abnormal result of other cardiovascular function study; R09.89 Other specified symptoms and signs involving the circulatory and respiratory systems

== ENCOUNTER 2021-07-30 21:25 | Emergency (ER) | payer MEDICARE, OTHER ==
[~2021-07-30] VITALS: Ht 172.7 cm; Wt 90.9 kg
[~2021-07-30 21:25] MED LIST changes: -CITA40TA4 PO; +CITA40TA7 PO; -LISI10TA15 PO; +LISI10TA24 PO
[2021-07-30 21:49] VITALS: BP 97/55
== END 2021-07-30 23:58 | disposition left against medical advice (07) ==
LOC: M ED 21:25
DX: Z53.29 Procedure and treatment not carried out because of patient's decision for other reasons (principal)

== ENCOUNTER → 2021-08-12 | Outpatient (CLI) | payer MEDICARE, OTHER | LOC: M RAD 11:37 | PROVIDERS: ATTEND Nurse Practitioner Family | DX: R06.00 Dyspnea, unspecified (principal) ==

== ENCOUNTER → 2021-08-20 | Outpatient (CLI) | payer MEDICARE, OTHER ==
[~2021-08-20] MED LIST changes: +GASTROGRAFIN SOLUTION 30ML (Q9963) ONE; +ISOVUE-370 76% 100ML VIAL ONE
== END ==
LOC: M PLAIMG 08:42
PROVIDERS: ATTEND Nurse Practitioner Family
DX: N28.1 Cyst of kidney, acquired (principal); R19.7 Diarrhea, unspecified
CPT/HCPCS: 74177; Q9963; Q9967

== ENCOUNTER → 2022-04-17 | Outpatient (CLI) | payer MEDICARE, OTHER ==
[~2022-04-17] MED LIST changes: -GASTROGRAFIN SOLUTION 30ML (Q9963) ONE; -ISOVUE-370 76% 100ML VIAL ONE
== END ==
LOC: M RAD 10:34
PROVIDERS: ATTEND Nurse Practitioner Family
DX: Z12.2 Encounter for screening for malignant neoplasm of respiratory organs (principal)

== ENCOUNTER → 2022-05-05 | Outpatient (REF) | payer MEDICARE, OTHER ==
[2022-05-05 17:42] LABS: BASO # 0.1 10^3/uL (0.0-0.2); BASO % 0.5 % (0.0-1.0); EOS # 0.2 10^3/uL (0.0-0.5); EOS % 2.3 % (0.0-3.0); HEMATOCRIT 42.3 % (36.0-47.0); HEMOGLOBIN 13.3 g/dl (12.0-15.5); LYMPH # 1.9 10^3/uL (1.5-5.0); LYMPH % 20.1 % (24.0-44.0); MEAN CORPUSCULAR HEMOGLOBIN 34.5 pg (27.0-33.0); MEAN CORPUSCULAR HGB CONC 31.4 g/dl (32.0-36.5); MEAN CORPUSCULAR VOLUME 109.6 fl (80.0-96.0); MONO # 0.7 10^3/uL (0.0-0.8); MONO % 7.7 % (2.0-8.0); NEUTROPHILS # 6.5 10^3/uL (1.5-8.5); PLATELET COUNT, AUTOMATED 381 10^3/uL (150-450); RED BLOOD COUNT 3.86 10^6/uL (4.00-5.40); WHITE BLOOD COUNT 9.5 10^3/uL (4.0-10.0)
[2022-05-05 18:02] LABS: HEMOGLOBIN A1c 5.6 % (4.0-6.0)
[2022-05-05 18:50] LABS: ALBUMIN 3.5 G/DL (3.2-5.2); ALKALINE PHOSPHATASE 72 U/L (46-116); ALT/SGPT 27 U/L (7.0-40); AST/SGOT 26 U/L (<34); BILIRUBIN,TOTAL 0.4 MG/DL (0.3-1.2); BLOOD UREA NITROGEN 12 MG/DL (9-23); CALCIUM LEVEL 9.3 MG/DL (8.3-10.6); CARBON DIOXIDE LEVEL 31 MMOL/L (20-31); CHLORIDE LEVEL 103 MMOL/L (98-107); CHOLESTEROL LEVEL 183 MG/DL (<200); CHOLESTEROL RISK RATIO 2.98 (<5); GLUCOSE, FASTING 98 MG/DL (74-106); HDL CHOLESTEROL 61.4 MG/DL (>40); LDL CHOLESTEROL 105.8 MG/DL (<100); NON-HDL-C 122 MG/DL; POTASSIUM SERUM 5.2 MMOL/L (3.5-5.1); SODIUM LEVEL 137 MMOL/L (136-145); TOTAL PROTEIN 6.7 G/DL (5.7-8.2); TRIGLYCERIDES LEVEL 79 MG/DL (<150)
[2022-05-05 20:02] LABS: CREATININE FOR GFR 0.87 MG/DL (0.55-1.30); GLOMERULAR FILTRATION RATE > 60.0 (>45)
== END ==
LOC: M LAB REF 17:18
PROVIDERS: ATTEND Nurse Practitioner Family
DX: Z13.228 Encounter for screening for other metabolic disorders (principal)

== ENCOUNTER → 2022-10-30 | Outpatient (REF) | payer MEDICARE, OTHER ==
[2022-10-30 13:29] LABS: ALBUMIN 3.5 G/DL (3.2-5.2); ALKALINE PHOSPHATASE 74 U/L (46-116); ALT/SGPT 19 U/L (7.0-40); AST/SGOT 15 U/L (<34); BILIRUBIN,TOTAL 0.3 MG/DL (0.3-1.2); BLOOD UREA NITROGEN 13 MG/DL (9-23); CALCIUM LEVEL 9.7 MG/DL (8.3-10.6); CARBON DIOXIDE LEVEL 30 MMOL/L (20-31); CHLORIDE LEVEL 100 MMOL/L (98-107); CHOLESTEROL LEVEL 182 MG/DL (<200); CHOLESTEROL RISK RATIO 3.44 (<5); GLOMERULAR FILTRATION RATE > 60.0 (>45); GLUCOSE, FASTING 108 MG/DL (74-106); HDL CHOLESTEROL 52.9 MG/DL (>40); LDL CHOLESTEROL 107.7 MG/DL (<100); NON-HDL-C 129.1 MG/DL; POTASSIUM SERUM 4.3 MMOL/L (3.5-5.1); SODIUM LEVEL 136 MMOL/L (136-145); TOTAL PROTEIN 6.7 G/DL (5.7-8.2); TRIGLYCERIDES LEVEL 107 MG/DL (<150)
== END ==
LOC: M LAB REF 12:18
PROVIDERS: ATTEND Nurse Practitioner Family
DX: Z13.228 Encounter for screening for other metabolic disorders (principal); Z79.899 Other long term (current) drug therapy

== ENCOUNTER → 2023-01-26 | Outpatient (REF) | payer MEDICARE, OTHER ==
[2023-01-26 13:24] LABS: CHOLESTEROL RISK RATIO 3.52 (<5); HDL CHOLESTEROL 59.9 MG/DL (>40); LDL CHOLESTEROL 120.5 MG/DL (<100); NON-HDL-C 151.1 MG/DL
== END ==
LOC: M LAB REF 12:25
PROVIDERS: ATTEND Nurse Practitioner Family
DX: R79.89 Other specified abnormal findings of blood chemistry (principal)

== ENCOUNTER → 2023-04-19 | Outpatient (REF) | payer MEDICARE, OTHER ==
[2023-04-19 13:08] LABS: CHOLESTEROL RISK RATIO 3.52 (<5); HDL CHOLESTEROL 40.3 MG/DL (>40); LDL CHOLESTEROL 81.3 MG/DL (<100); NON-HDL-C 101.7 MG/DL
== END ==
LOC: M LAB REF 12:00
PROVIDERS: ATTEND Nurse Practitioner Family
DX: E78.5 Hyperlipidemia, unspecified (principal)

== ENCOUNTER → 2024-07-06 | Outpatient (REF) | payer MEDICARE, MEDICAID ==
[2024-07-06 18:04] LABS: BASO # 0.1 10^3/uL (0.0-0.2); BASO % 0.3 % (0.0-1.0); EOS # 0.2 10^3/uL (0.0-0.5); EOS % 1.2 % (0.0-3.0); HEMATOCRIT 40.3 % (36.0-47.0); HEMOGLOBIN 12.6 g/dl (12.0-15.5); LYMPH # 2.4 10^3/uL (1.5-5.0); LYMPH % 16.5 % (24.0-44.0); MEAN CORPUSCULAR HEMOGLOBIN 31.2 pg (27.0-33.0); MEAN CORPUSCULAR HGB CONC 31.3 g/dl (32.0-36.5); MEAN CORPUSCULAR VOLUME 99.8 fl (80.0-96.0); MONO # 1.2 10^3/uL (0.0-0.8); NEUTROPHILS # 10.6 10^3/uL (1.5-8.5); NEUTROPHILS % 73.4 % (36.0-66.0); PLATELET COUNT, AUTOMATED 561 10^3/uL (150-450); RED BLOOD COUNT 4.04 10^6/uL (4.00-5.40); WHITE BLOOD COUNT 14.4 10^3/uL (4.0-10.0)
[2024-07-06 18:08] LABS: ALBUMIN 3.5 G/DL (3.2-5.2); BILIRUBIN,TOTAL 0.2 MG/DL (0.3-1.2); CALCIUM LEVEL 9.7 MG/DL (8.3-10.6); CHOLESTEROL RISK RATIO 4.36 (<5); CREATININE FOR GFR 0.86 MG/DL (0.55-1.30); GLOMERULAR FILTRATION RATE 73.1 (>45); HDL CHOLESTEROL 44.7 MG/DL (>40); LDL CHOLESTEROL 126.7 MG/DL (<100); MAGNESIUM LEVEL 1.7 MG/DL (1.8-2.4); NON-HDL-C 150.3 MG/DL; POTASSIUM SERUM 4.5 MMOL/L (3.5-5.1); THYROID STIMULATING HORMONE 0.584 uIU/ML (0.55-4.78)
[2024-07-06 18:10] LABS: FOLATE 11.4 NG/ML (>5.4)
[2024-07-06 18:46] LABS: PERCENT SATURATION 8.5 % (13.2-45.0)
[2024-07-06 19:38] LABS: HEMOGLOBIN A1c 5.8 % (4.0-6.0)
== END ==
LOC: M LAB REF 16:36
PROVIDERS: ATTEND Nurse Practitioner Family
DX: E66.3 Overweight (principal); D64.9 Anemia, unspecified; Z79.899 Other long term (current) drug therapy

== ENCOUNTER → 2024-07-19 | Outpatient (CLI) | payer MEDICARE, MEDICAID | LOC: M RAD 13:15 | PROVIDERS: ATTEND Nurse Practitioner Family | DX: J45.909 Unspecified asthma, uncomplicated (principal) ==

== ENCOUNTER → 2024-10-16 | Outpatient (CLI) | payer MEDICARE, MEDICAID | LOC: M PLAIMG 13:46 | PROVIDERS: ATTEND Physician Assistant | DX: J44.9 Chronic obstructive pulmonary disease, unspecified (principal); R06.02 Shortness of breath; Z87.891 Personal history of nicotine dependence; J98.11 Atelectasis; R91.1 Solitary pulmonary nodule ==